=== PATIENT | female | born 1945 | race Caucasian/White ===

== ENCOUNTER 2023-11-30 12:25 | Day surgery (SDC) | payer OTHER, SELFPAY ==
[2023-11-30] VITALS (8 sets, daily range): BP systolic 93–157; BP diastolic 47–70; BMI 27.1
--- NOTE | 2023-11-30 09:00 | ITS.CL.CATH ---
Economics Instructor - Catheterization
Cardiac Catheterization
Procedure Report:
CARDIAC CATHETERIZATION REPORT
Date of Procedure: 11/30/2023
Referring: Renny Wu DO
Indication: Severe aortic stenosis
HEMODYNAMIC DATA
AO: 116/58
LV: Not done
LEFT VENTRICULOGRAPHY: Not performed as we chose not to cross the critically stenotic aortic valve
CORONARY ANGIOGRAPHY
Dominance: Right
Left Main: Normal
LAD: Moderate to severe proximal to mid LAD calcification. There is calcific 30% mid LAD stenosis and 40% distal LAD stenosis
Circumflex: Mild luminal irregularities
RCA: Dominant vessel with mild luminal irregularities in the RCA proper. The large PDA has 30% mid stenosis. There is a 60% stenosis in the distal AV groove extending into the origin of the large terminal right posterolateral branch
Closure Device: None-the procedure was performed via the right radial artery. The Amadou's test was normal prior to the procedure.
Radiation dose (mGy): 147
DAP (cm2.Gy): 11.9
Fluoroscopy time: 3.5 minutes
CONCLUSIONS:
1. Mild CAD as described
2. Critical aortic stenosis not invasively evaluated
RECOMMENDATIONS: Proceed with TAVR evaluation
Copy to: Renny Wu DO, Lance Gifford DO,
Pepito Angela MD, [facility], [facility]
[2023-11-30 13:31] LABS: Glucose - Point of Care 108 mg/dl (70-99)
[2023-11-30] MEDS: TYLENOL 650 MG PO (15:46)
--- NOTE | 2023-11-30 16:05 | CONSULT.STRU ---
Consultation
-
Date/Time Consultation Requested: 11/30/2023
Date/Time Consultation Performed: 11/30/2023
Requesting Provider: Pepito Angela MD
Performing Provider: FIDELINA Fermin
Reason for Consultation: Severe Aortic Stenosis/ TAVR evaluation
Patient History
Physicians
Family Physician: Balta
Outpatient Monument Mason: Renny Wu
Primary Monument Mason: Renny Wu
History of Present Illness
Ms. Rocha is a 78 year old female with history of type II DM , HTN , HLD , hypothyroidisim , osteoarthritis. She was recently treated PNA involving LLL� 09/2023 who presents for evaluation for aortic stenosis. Patient explains that she had been in
her normal state of health until shortly before September when she was diagnosed with influenza as well as pneumonia after she had been with her family to celebrate [facility]. She has since been feeling increased fatigue as well as some chest pressure that
does not radiate, DELATORRE and lightheadedness. Her echocardiogram was notable for critical aortic stenosis with a mean gradient of 80.5 mmHg peak gradient of 102.6 mmHg and aortic valve area of 0.5 cm sq. There is mild aortic regurgitation. EF is
55-60%. Other valves appear structurally normal. Cardiac cath today with mild CAD-calcific 30% mid LAD stenosis and 40% distal LAD stenosis, large PDA has 30% mid stenosis. There is a 60% stenosis in the distal AV groove extending into the origin
of the large terminal right posterolateral branch.
Reviewed the pathophysiology of aortic stenosis with the patient.. Explained the treatment options of SAVR and TAVR. Explained the TAVR evaluation process including follow up BMP, CT TAVR scan, CT surgery consult and Heart Team discussion. Provided
with script for BMP next week, script and appointment for CT TAVR, Consult appointment with Dr. Patel and a copy of the TAVR education booklet with contact information. Allowed for and answered questions.
Past Medical History
Past Medical History: CAD, DELATORRE, HTN, Hypercholesterolemia, Hypothyroidism, NIDDM and Psychiatric (anxiety/depression)
Past Surgical History
Past Surgical History: Other (D&C)
Dental History
Dentures
Family History
Mother: at Age (79yo, alzheimers)
Father: at Age (61yo, mesothelioma)
Social History
Alcohol: Occasional
Drug: None and Former User
Tobacco: Former Smoker (quit 50 years ago )
Personal:
Living: Alone
Allergies
Allergy/AdvReac Type Severity Reaction Status Date / Time
No Known Allergies Allergy Verified 11/30/23 13:32
Home Medications
�Medication �Instructions �Recorded �Confirmed �Type
atorvastatin 10 mg tablet 10 mg PO DAILY 11/30/23 11/30/23 History
escitalopram oxalate 10 mg tablet 10 mg PO DAILY 11/30/23 11/30/23 History
levothyroxine 75 mcg tablet 75 mcg PO DAILY 11/30/23 11/30/23 History
lisinopril 20 mg tablet 20 mg PO DAILY 11/30/23 11/30/23 History
meloxicam 15 mg tablet 15 mg PO DAILYPRN PRN pain 11/30/23 11/30/23 History
metformin 500 mg tablet 500 mg PO DAILY 11/30/23 11/30/23 History
STS%
STS %: 2.82%
Review of Systems
-
History Source: Patient
General: Reports Fatigue; Denies Fever, Weight Gain or Night Sweats
HEENT: Reports No Symptoms
Respiratory: Reports DELATORRE; Denies Cough or PND
Cardiac: Reports Chest Pain (chest pressure); Denies Palpitations or Edema
Abdomen/GI: Reports Diarrhea (occasional); Denies Abdominal Pain, Nausea or Vomiting
: Reports No Symptoms; Denies Dysuria, Frequency or Urgency
Musculoskeletal: Reports No Symptoms
Skin: Reports No Symptoms
Neurological: Reports Dizzy (lightheadedness); Denies CVA or TIA
Vascular: Reports No Symptoms
Physical Exam
Vital Signs
Temp 97.8 F 11/30/23 12:35
Temp route: Oral 11/30/23 12:35
Pulse 55 11/30/23 15:30
Resp Rate 13 11/30/23 15:30
Blood pressure 121/48 11/30/23 15:30
Blood pressure extremity used: Right upper arm 11/30/23 15:21
Position: Lying 11/30/23 15:21
MAP (cuff-Luciano Monitor) 70 11/30/23 15:30
SaO2 98 11/30/23 15:30
Oxygen Mode of Delivery Room air 11/30/23 15:21
Can the patient verbally communicate their pain? Yes 11/30/23 15:46
Pain scale ratin 11/30/23 15:46
Actual Weight 72.8 kg 11/30/23 12:35
Body Mass Index (BMI) 27.1 11/30/23 12:35
Labs
11/17/2023:
BUN/Creat: 18/1.17
GFR: 48
H/H: 11.5/33.4
Diagnostic Studies
Echocardiogram 11/25/2023:
CONCLUSIONS
Study quality suboptimal due to poor acoustic windows. There is normal
biventricular systolic function ejection fraction 55 to 60%. Regional wall
motion abnormalities cannot be adequately assessed.. There is grade 1
diastolic dysfunction. There is mild concentric left ventricular hypertrophy.
Left atrium is mildly dilated remainder of chambers of normal size. Aortic
valve is severely calcified. There is critical aortic stenosis with a mean
gradient of 80.5 mmHg peak gradient of 102.6 mmHg and aortic valve area of 0.5
cm sq. There is mild aortic regurgitation.
Results communicated to patient on date of study via phone conversation.
Indications:
Cardiac murmur, unspecified
Rhythm: Sinus
Portable Study:
Technical Quality: Technically difficult study
Contrast: None
BP: 120 / 70
PROCEDURE
A complete Transthoracic Echocardiogram was performed utilizing two-dimensional
evaluation with color flow and spectral Doppler analysis.
FINDINGS
Left Ventricle
Normal left ventricular size, and systolic function. There is mild concentric
LVH. Regional wall motion abnormalities cannot be adequately assessed. due to
poor endocardial visualization of all segments. The ejection fraction is
estimated at 55 to 60% Spectrum tissue Doppler suggestive of grade 1 diastolic
dysfunction.
Right Ventricle
Normal right ventricular size and function. TAPSE 2.59 cm
Left Atrium
Left atrium is mildly dilated
Right Atrium
Normal right atrium.
Mitral Valve
Structurally normal mitral valve without significant stenosis or regurgitation.
Aortic Valve
Aortic valve is severely calcified. There is critical aortic stenosis with a
mean gradient of 80.5 mmHg peak gradient of 102.6 mmHg and aortic valve area of
0.5 cm sq. There is mild aortic regurgitation.
Tricuspid Valve
Structurally normal tricuspid valve without significant stenosis or
regurgitation. Due to absence of tricuspid regurgitant jet unable to estimate
right ventricular systolic pressure.
Pulmonic Valve
Pulmonic valve not well visualized
Pericardium\\Pleura
Normal pericardium without effusion.
Aorta
Normal aortic root.
Other Finding
The IVC is of normal size and demonstrates normal respiratory variation.
Interatrial septum is intact with no evidence of shunting by color flow
Doppler.
MEASUREMENTS (Male / Female) Normal Values
2D ECHO
LV Diastolic Diameter PLAX 3.6 cm 4.2 - 5.9 / 3.9 - 5.3 cm
LV Systolic Diameter PLAX 2.6 cm
IVS Diastolic Thickness 1.2 cm 0.6 - 1.0 / 0.6 - 0.9 cm
LVPW Diastolic Thickness 1.1 cm 0.6 - 1.0 / 0.6 - 0.9 cm
LV Relative Wall Thickness 0.6
RV Internal Dim ED PLAX 2.8 cm
LVOT Diameter 2.0 cm
M-MODE
Aortic Root Diameter MM 2.7 cm
LA Systolic Diameter MM 4.3 cm
LA Ao Ratio MM 1.6
DOPPLER
AV Peak Velocity 506.5 cm/s
AV Peak Gradient 102.6 mmHg
AV Mean Gradient 80.5 mmHg
AV Velocity Time Integral 149.8 cm
LVOT Peak Velocity 81.5 cm/s
LVOT Peak Gradient 2.7 mmHg
LVOT Velocity Time Integral 23.5 cm
LVOT Stroke Volume 75.0 cm3
LVOT Stroke Volume Index 40.1 ml/m2 empty
LVOT Cardiac Index 2527.8 cm3/min
AV Area Cont Eq vti 0.5 cm2
AV Area Cont Eq pk 0.5 cm2
Mitral E Point Velocity 103.6 cm/s
Mitral A Point Velocity 110.8 cm/s
Mitral E to A Ratio 0.9
Cardiac Catheterization 11/30/2023:
HEMODYNAMIC DATA
AO: 116/58
LV: Not done
LEFT VENTRICULOGRAPHY: Not performed as we chose not to cross the critically stenotic aortic valve
CORONARY ANGIOGRAPHY
Dominance: Right
Left Main: Normal
LAD: Moderate to severe proximal to mid LAD calcification. There is calcific 30% mid LAD stenosis and 40% distal LAD stenosis
Circumflex: Mild luminal irregularities
RCA: Dominant vessel with mild luminal irregularities in the RCA proper. The large PDA has 30% mid stenosis. There is a 60% stenosis in the distal AV groove extending into the origin of the large terminal right posterolateral branch
Closure Device: None-the procedure was performed via the right radial artery. The Amadou's test was normal prior to the procedure.
Radiation dose (mGy): 147
DAP (cm2.Gy): 11.9
Fluoroscopy time: 3.5 minutes
CONCLUSIONS:
1. Mild CAD as described
2. Critical aortic stenosis not invasively evaluated
Exam
General: Well Developed, Well Nourished, No Apparent Distress and Comfortable
HEENT: Normocephalic, Moist Mucous Membranes and PERRLA
Neck: Trachea Midline
Respiratory: Clear; Negative Wheezes, Crackles or Rhonchi
Cardiac: S1/S2, Irregular Rhythm and Murmur (Grade III-IV/ systolic)
GI: Soft, Non Tender, Non Distended and Normal Bowel Sounds
Rectal: Deferred by Provider
Skin: Warm and Dry
Neuro: AO x 3, No Motor Deficits and Nonfocal/Grossly Intact
Extremities: Pulses (+2 DP pulses bilaterally); Negative Lower Level Edema
Lymph: No Lymphadenopathy
Psych: Calm
Assessment / Plan
-
Procedure Type:�Isolated AVR
PERIOPERATIVE OUTCOME ESTIMATE %
Operative Mortality 2.82%
Morbidity & Mortality 12%
Stroke 1.07%
Renal Failure 3.47%
Reoperation 2.81%
Prolonged Ventilation 8.45%
Deep Sternal Wound Infection 0.077%
Long Hospital Stay (>14 days) 8.28%
Short Hospital Stay (<6 days)* 28.7%
Severe Aortic stenosis:
��������������� Continue evaluation for TAVR
��������������� BMP 12/03/2023 ([facility])
��������������� CT TAVR scan 12/07/2023 at
��������������� CT surgery consult with Dr. Patel 12/07/2023
��������������� Heart team discussion at [facility]
Data Reviewed
-
EKG: Report Reviewed by me
Forensic Engineer: Report Reviewed by me and Discussed with Physician
Echo: Report Reviewed by me and Discussed with Physician
Labs: Labs Reviewed by me
Old Records: Reviewed (Cardiology office notes)
Total Time Spent with Patient (in minutes): 35
== END 2023-11-30 17:05 | disposition home or self-care (01) ==
LOC: CATH 12:25
PROVIDERS: ATTENDING PHYSICIAN Internal Medicine Cardiovascular Disease; FAMILY PHYSICIAN Family Medicine; OTHER PHYSICIAN Student in an Organized Health Care Education/Training Program
DX: I35.0 Nonrheumatic aortic (valve) stenosis (principal); R53.83 Other fatigue; R07.89 Other chest pain; R01.1 Cardiac murmur, unspecified; I25.10 Atherosclerotic heart disease of native coronary artery without angina pectoris; I10 Essential (primary) hypertension; E78.00 Pure hypercholesterolemia, unspecified; E03.9 Hypothyroidism, unspecified; E11.9 Type 2 diabetes mellitus without complications; Z87.891 Personal history of nicotine dependence; Z79.84 Long term (current) use of oral hypoglycemic drugs
CPT/HCPCS: 82962; 93005; 93454; C1894; Q9967

== ENCOUNTER → 2023-12-07 10:44 | Outpatient (REF) | payer OTHER, SELFPAY | LOC: RAD 10:44 | PROVIDERS: ATTENDING PHYSICIAN Nurse Practitioner Adult Health; FAMILY PHYSICIAN Family Medicine | DX: I35.0 Nonrheumatic aortic (valve) stenosis (principal) | CPT/HCPCS: 74174; 75572; Q9967 ==

== ENCOUNTER 2023-12-15 15:44 | Inpatient (IN) | payer OTHER, SELFPAY ==
[2023-12-15] VITALS (7 sets, daily range): BP systolic 103–154; BP diastolic 44–73; BMI 25.9; BMI 26.8; BMI 25.5
[2023-12-15 12:39] LABS: % Basophils 0.9 % (0-2); % Eosinophils 2.1 % (0-6); % Immature Granulocytes 0.2 % (0-0.5); % Lymphocytes 26.6 % (20.5-51.1); % Neutrophils 62.2 % (42.2-75.2); Absolute Basophils 0.1 10^3/uL (0-0.2); Absolute Eosinophils 0.1 10^3/uL (0-0.7); Absolute Lymphocytes 1.8 10^3/uL (1.2-3.4); Absolute Monocytes 0.5 10^3/uL (0.1-0.6); Absolute Neutrophils 4.1 10^3/uL (1.4-6.5); Hematocrit 33.6 % (37.0-47.0); Hemoglobin 11.2 g/dL (12.0-16.0); Mean Corp Hgb Conc. 33.3 g/dL (33.0-37.0); Mean Corpuscular Hgb 30.7 pg (27.0-31.0); Mean Corpuscular Volume 92.1 fL (81.0-99.0); Mean Platelet Volume 11.9 fL (7.4-10.4); Nucleated Red Blood Cells % 0 %; Platelet Count 375 10^3/uL (130-400); Red Blood Cell Count 3.65 10^6/uL (4.20-5.40); Red Cell Dist. Width 13.7 % (11.5-14.5); White Blood Cell Count 6.6 10^3/uL (4.8-10.8)
[2023-12-15 12:40] LABS: Urine Albumin Trace (Neg - Trace); Urine Bilirubin Negative (Negative); Urine Character Clear (Clear); Urine Color Yellow; Urine Glucose Negative (Negative); Urine Ketone Negative (Negative); Urine Leukocyte 1+ (Negative); Urine Nitrite Negative (Negative); Urine Occult Blood Negative (Negative); Urine Specific Gravity 1.015 (<1.030); Urine Urobilinogen Negative (Neg - 1+)
[2023-12-15 12:55] LABS: INR 1.01; PT 13.3 Sec (11.4-14.6)
[2023-12-15 12:56] LABS: APTT 29.2 Sec (23.4-35.0)
[2023-12-15 13:00] LABS: NT-proBNP 2810 pg/ml
[2023-12-15 13:06] LABS: ALT (SGPT) 12 U/L (0-35); AST (SGOT) 26 U/L (14-36); Albumin 4.6 g/dl (3.5-5.0); Alkaline Phosphatase 98 U/L (38-126); Blood Urea Nitrogen 23 mg/dl (7-17); Calcium 10.2 mg/dl (8.4-10.2); Carbon Dioxide 23 mmol/L (22-30); Chloride 105 mmol/L (98-107); Direct Bilirubin 0.2 mg/dl (0.0-0.4); Estimated Creatinine Clearance 34 ml/min; Glucose 96 mg/dl (70-99); Potassium 5.2 mmol/L (3.5-5.1); Sodium 138 mmol/L (135-145); Total Bilirubin 1.8 mg/dl (0.2-1.3); Total Protein 6.7 g/dl (6.3-8.2); eGFR 42.35
[2023-12-15 13:52] LABS: Glycohemoglobin (HgbA1c) 5.6 % (4.0-5.6)
[2023-12-15 14:23] LABS: Urine Amorphous Seen; Urine Hyaline Cast 0-2 /LPF (0-2)
[2023-12-15 14:25] LABS: Urine Red Blood Cell 0-2 /HPF (0-2)
--- NOTE | 2023-12-15 14:25 | ED.GENMED ---
History of Present Illness
General
Chief Complaint: Heart Rate Problem
Time Seen by Provider: 12/15/23 14:19
History of Present Illness
History of Present Illness:
HPI: The patient was sent here for evaluation by a physician (patient states it was an anesthesiologist) in preadmission testing. She was at preadmission testing today as part of workup for upcoming TAVR. She is getting a TAVR because she has
critical aortic stenosis mean gradients of 80 and peak over 100. Over the last few days she has been having some palpitations. EKG at preadmission testing showed some PACs and the staff recommended she come into the ER for further evaluation. She
is also had some chest pressure sensation.
EXAM:
GENERAL: Well appearing in no distress
HEENT: Moist oral mucosa
CARDIOVASCULAR: 4 out of 6 systolic murmur in the right upper sternal border, normal heart rate, regular rhythm with some degree of irregularity/ectopy, No chest wall tenderness
PULMONARY: No respiratory distress, breath sounds are clear and equal
ABDOMEN: Soft with no peritoneal signs, no tenderness
NEUROLOGIC: Excellent strength all extremities, no coordination deficits
PSYCHIATRIC: Appropriate mental status, normal insight and judgement
EXTREMITIES: Nontender, no edema, moves all extremities equally
SKIN: No rash, no lesions
TIME OF INITIAL ENCOUNTER: 2:30 PM
NUMBER AND COMPLEXITY OF PROBLEMS ADDRESSED AT THE ENCOUNTER
� Chronic conditions affecting care: Aortic stenosis, high blood pressure, diabetes, hypothyroidism
� Acute Exacerbation and/or Progression of Chronic Illness: This is an acute problem
� Differential Diagnosis includes: Atrial ectopy, ventricular ectopy, ACS unlikely however the patient, atrial fibrillation, progression of aortic stenosis
AMOUNT AND/OR COMPLEXITY OF DATA TO BE REVIEWED AND ANALYZED
� I performed an independent evaluation of and my interpretation is:
EKG: Sinus 60, PACs, septal Q waves
CT:
X-rays:
Laboratory Studies: Troponin less than 0.012, potassium 5.2, BNP 2810, urinalysis does not show any clear sign of urinary tract infection
Other:
� Review of other/old records: I reviewed echo from 11/25/2023�critical
� Clinical information was obtained by an independent historian: I spoke to family at bedside and I also spoke to her steam flattener
� Prescriptions/Medications Considered but not given:
� Further testing considered but not performed:
RISK OF COMPLICATIONS AND/OR MORBIDITY OR MORTALITY OF PATIENT MANAGEMENT
� Social determinants of health affecting care: Lives at home
� Discussion with other providers: I spoke to the patient's primary steam flattener, Dr. Renny Wu who states the patient has nonobstructive CAD and has critical aortic stenosis. I spoke to [facility] cardiology and they will
be admitting the patient to the hospital.
� Escalation of care including admission/observation vs risk of discharge considered: I discussed with cardiology. Ultimately the patient will be admitted by [facility] cardiology for urgent/emergent TAVR tomorrow.
Phy Exam
Physical Exam
Physical Exam:
See HPI
Course
Orders/Labs/Results
Orders:
Orders
12/15/23 11:40
Electrocardiogram (*1) Routine
Reason for Study: PreOp
Comment: [facility] 12/23/23
CR Chest - 2 Views Routine
Comment: [facility] 12/23/23
Reason For Exam: PREOP
12/15/23 12:16
Type+Screen Routine
BBK Wristband Number:
Complete Blood Count/With Diff Routine
Comprehensive Metabolic Panel Routine
Comment: [facility] 12/23/23
Direct Bilirubin Routine
Glycohemoglobin (HgbA1c) Routine
NT-proBNP Routine
Comment: [facility] 12/23/23
PTT Routine
Comment: [facility] 12/23/23
Prothrombin Time Routine
Comment: [facility] 12/23/23
Urinalysis Reflex To Culture Routine
Date Specimen was Collected: 12/15/23
Time Specimen was Collected: 11:41
Comment: [facility] 12/23/23
Urine Microscopic Reflex Cult Routine
MRSA Screen Routine
MARTY Source: N
Specimen Description:
Comment: [facility] 12/23/23
Urine Culture Routine
MARTY Source: U
Specimen Description:
Date Specimen was Collected: 12/15/23
Time Specimen was Collected: 11:41
12/15/23 13:11
Electrocardiogram (*1) Routine
Reason for Study: PreOp
Comment: [facility] 12/23/23
12/15/23 13:48
Electrocardiogram (*1) Urgent
Reason for Study: Palpitations
12/15/23 13:49
EKG- Treatment ONCE
12/15/23 13:56
Troponin I Urgent
12/15/23 14:20
Add On- LAB Urgent
Tests Added?: mg, TSH refl fT4 (had PAT labs)
12/15/23 15:17
* Blood Bank Products Routine
Blood Bank Products: *Packed RBC Leuko(PRBC's)
Blood Bank Products: *Packed RBC Leuko(PRBC's)
Quantity: 1
Transfuse Today: Hold for OR
Is product needed for scheduled surgery?: Yes
Expected Surgery Date: TOMORROW
Reason: Other
Other reason: cardiothoracic surgery
Patient will require pre-treatment for transfusion:: No
VTE Contraindication Routine
VTE Mechanical Device Contraindication: Surgical Contraindication
Pharmocologic Contraindication: Medical Contraindication
OR/Surgery Prep As Directed
Type of Prep: shower or bathe patient with 4% CHG night before surgery.
Comment: DOS: cleanse pt with 2% CHG wipes. Complete clip/prep for scheduled surgery
PRN Pain Medication Management As Directed
May give lesser potent ordered pain med per pt: Yes
preference::
Protocol:: Medication orders for pain may be administered in a
manner that supports deferring to patient preference
when the pt is:
- Requesting an ordered lesser potent pain medication.
Least to most potent pain medications are defined
as: acetaminophen < NSAID < tramadol < opioids
(morphine, oxycodone, hydromorphone).
- Requesting a lesser dose of the same medication IF
ORDERED.
- Requesting a less intrusive route of administration
if both routes are prescribed by the provider (PO <
IV).
12/15/23 15:22
Magnesium Routine
Comment: CANT BE ADDED
TSH Reflex To Free T4 Routine
Comment: CANT BE ADDED
12/15/23 15:26
Admit/Transfer Patient As Directed
Co-Sign Provider:
Level of Care: Inpatient admission
Assign to:: IVU
Physician / Group: Dr. Benedict
Diagnosis: critical aortic stenosis
Reason for Hospitalization: critical aortic stenosis
Expected length of stay greater than two midnights?: Yes
ELOS- Estimated Length of Stay in days: 3
I certify the patient meets the requirements for IP care: Yes
12/16/23 06:00
Admit Patient As Directed
Co-Sign Provider:
Level of Care: Inpatient admission
Assign to:: IVU
Physician / Group: juve vincent
Diagnosis: aortic stenosis
Reason for Hospitalization: TF TAVR
Expected length of stay greater than two midnights?: Yes
ELOS- Estimated Length of Stay in days: 2
I certify the patient meets the requirements for IP care: Yes
Echo Follow up Study W Dop Routine
Reason for Study: TAVR
Comment: done intraoperative
NPO
Allow oral meds: Yes
Allow clear liquids: No
NPO for procedure after (time): MIDNIGHT
CeFAZolin 2 GRAM [Ancef] 2 grams in 10 ml IV CVOR@0600,0700
Magnesium Oxide 500 mg PO ONCE ONE
Metoprolol [Lopressor] 25 mg PO ONCE ONE
Pantoprazole [Protonix] 40 mg PO ONCE ONE
Activity As Directed
Activity Level: As Tolerated
Blood Pressure Bilateral Upper Extremities IN AM
Instructions:: If not already done, obtain and record bilateral upper extremity BP
Notify physician/PA/WORK ORDER DETAILER:: notify cardiac surgery PA, WORK ORDER DETAILER, or MD of a 20 mmHg or greater difference
Blood Pressure LEFT Upper Extremity ONCE
Blood Pressure RIGHT Upper Extremity ONCE
Notify MD As Directed
Notify physician if: Contact physician if patient has received any of the following agents within the previous
5 days:
Warfarin (Coumadin) Clopidogrel (Plavix)
Dabigatran (Pradaxa) Ticagrelor (Brillinta)
Rivaroxiban (Xarelto) Prasugrel (Effient)
Apixaban (Eliquis) Cilostazol (Pletal)
Enoxaparin (Lovenox) Pentoxifylline (Trental)
Edoxaban (Savaysa) Dipyridamole/Aspirin (Aggrenox)
Notify MD As Directed
Notify physician if: patient received or is scheduled/ordered to receive within 24 hours prior to surgery any:
- angiotension converting enzyme (MAGDALENA) inhibitors
- angiotension receptor blockers (ARB)
including combination products containing one of these agents.
Patient Education As Directed
Type: [facility]
Comment: pre-operative teaching. Give patient/family [facility] education material
Patient scheduled for CT Surgery As Directed
Type of surgery: TAVR
Date of scheduled surgery: 12/16/23
Discontinue Heparin drip if ordered: building tech to OR
Weight As Directed
Frequency: Once
Comment: record patient's height and weight
Abnormal Lab Results
12/15/23
12:16
RBC 3.65 L 10^6/uL
(4.20-5.40)
Hgb 11.2 L g/dL
(12.0-16.0)
Hct 33.6 L %
(37.0-47.0)
MPV 11.9 H fL
(7.4-10.4)
Potassium 5.2 H mmol/L
(3.5-5.1)
BUN 23 H mg/dl
(7-17)
Creatinine 1.3 H mg/dL
(0.6-1.0)
Total Bilirubin 1.8 H mg/dl
(0.2-1.3)
Leukocyte Esterase Rfl 1+ A
(Negative)
12/15/23 12:16
12/15/23 12:16
Vital Signs
Initial and Last Documented VS:
Initial Vital Signs
Temp Pulse Resp BP Pulse Ox
98.3 F 48 16 154/47 100
12/15/23 13:43 12/15/23 13:43 12/15/23 13:43 12/15/23 13:43 12/15/23 13:43
Last Documented Vital Signs
Temp Pulse Resp BP Pulse Ox
98.3 F 56 12 154/47 100
12/15/23 13:43 12/15/23 15:32 12/15/23 15:32 12/15/23 13:43 12/15/23 13:43
*Critical Care Note
Total Time (30-74mins, 75-104mins- exclusive of procedures): Not Applicable
ED Attending Note
-
Portions of this chart may have been created with voice recognition software.� Occasional wrong word or��sound alike� substitutions may have occurred due to the inherent limitations of voice recognition software.
Discharge Plan
Departure
Patient Disposition: Admit
Date of Disposition: 12/15/23
Time of Disposition: 14:47
Presentation/result/management discussed w/ accepting MD/DO: connie
Discharge Problem:
Aortic valve stenosis, critical
Interventions
Interventions:
*General Assessment Last Done: 12/15/23 13:43
*ED COVID-19 Vaccine History Last Done: 12/15/23 13:43
[2023-12-15 14:30] LABS: Troponin I < 0.012 ng/ml
--- NOTE | 2023-12-15 14:34 | CM ---
Met with Mrs. Rocha in [facility]'s. She states prior to admission she resides alone in a one story home with five steps to enter. She states prior to admission she was independent with ambulation and adls. She states she does not have any DME in the
home. She states she has a prescription plan and uses [facility] She states she is planning on staying a few days with her son in [place] when she is discharged from the hospital. He resides in a two story home but she stays on the first
floor. His spouse in a nurse. The Cardiothoracic Transitional Care Nurse will do a telephone visit. The discharge plan is to go to her sons and daughter in-law home in [place] and a telephone visit by the Cardiothoracic Transitional Care Nurse
when medically stable.
We reviewed pre-op and post-op routines. We reviewed the shower instructions. She has the soap, written instructions and the TAVR Educational Booklet. We also reviewed restrictions including driving and lifting restrictions. We reviewed a
telephone visit from the Cardiothoracic Transitional Care Nurse. She is agreeable to a telephone visit. The plan is for TAVR on 12/16/23.
--- NOTE | 2023-12-15 14:49 | HPS.HSE ---
Addendum entered and electronically signed by Killian Benedict DO 12/15/23 18:22:
Attestation: I have seen and examined the patient. I can confirm Ms. Luis findings and I agree with her assessment and plan as documented.
78-year-old female with critical aortic valve stenosis, hypertension, hyperlipidemia and nonobstructive coronary artery disease on previous cardiac catheterization presenting with palpitations on preadmission testing.
Due to the patient's change in symptoms, the patient was referred to [facility] emergency room from her preop testing.
She reports increasing palpitations over the course of the past week. She feels as though her heart is 'jumping'. She does admit to a low level pressure that is inconsistent. She denies any shortness of breath, diaphoresis, syncope or presyncope.
Given the change in the patient's symptoms, the decision was made to admit the patient and proceed with TAVR on an expedited basis.
I reviewed the patient's exam and laboratory findings.
Her EKG shows sinus rhythm with some sinus arrhythmia and PACs. 1 EKG does demonstrate an acceleration of her heart rate, raising the possibility of tachybradycardia syndrome, though this is certainly not definitive.
Cardiac catheterization shows nonobstructive coronary artery disease. There may be some significant disease in the distal RPDA, but this is not something that we would intervene upon due to the vessel size.
The patient will be n.p.o. after midnight in anticipation of transcatheter aortic valve replacement tomorrow.
Original Note:
Family Physician
-
Family Physician: Lance Gifford
Chief Complaint
-
palpitations
History of Present Illness
78 y/o female (patient of Dr. Wu) with history of non-obstructive CAD, critical , DM2, hypertension, dyslipidemia, hypothyroidism, and osteoarthritis who was planning for TAVR next week, but today at preadmission testing reported palpitations
and was sent to the ER, where she is seen to have SR with PAC's.
Medical History
Past Medical History
Past Medical History: Reports CAD, HTN, Hypercholesterolemia, Hypothyroidism, NIDDM and Valvular Disease
Past Surgical History: Reports Tonsilectomy
Social History
Tobacco: Former Smoker (quit 50 years ago)
Family History
Family History: Hypertension (dad)
Allergies / Home Medications
Allergies reflects when Allergies were last updated in [employer].
Home Medications with original date entered in [employer]
Allergy/Medication List:
Allergies: no known allergies
Medications:
aspirin 81 mg daily PO
atorvastatin 10 mg PO daily
escitalopram 10 mg PO daily
Boniva 150 mg PO monthly
iron EOD OTC
levothyroxine 75 mcg PO daily
metformin 1000 mg PO BID
meloxicam 15 mg PO PRN
Review of Systems
-
History Source: Patient
A 12 point ROS was completed and negative except as noted: Yes
Cardiac: Reports Palpitations
Physical Exam
Vital Signs
Vital Signs
Temp Pulse Resp BP Pulse Ox
98.3 F 48 16 154/47 100
12/15/23 13:43 12/15/23 13:43 12/15/23 13:43 12/15/23 13:43 12/15/23 13:43
Physical Exam
General: Well Developed, Well Nourished and No Apparent Distress
HEENT: NormoCephalic and Anicteric
Respiratory: Clear and Non Labored Respirations
Cardiac: Irregular Rhythm and Murmur (IV/ systolic murmur)
Skin: Warm and Dry
Neuro: AO x 3
Psych: Calm
Laboratory Results
-
Laboratory Results
Troponin I < 0.012 ng/ml 12/15/23 13:56
Data Reviewed
-
Medical Tests (Nuc Med, Echo, EKG etc): Image Personally Visualized and interpreted (EKG SR with PAC's) and Other (cath and echo as noted above)
Lab Data: Labs Reviewed by me
Impression/Plan
-
IMPRESSION/PLAN:
Critical :
-severe as noted and reported palpitations today at pre-admission testing
-11/25/23 echo: EF 55 to 60%. Grade 1 DD. Mild concentric left ventricular hypertrophy. Left atrium is mildly dilated. Aortic valve is severely calcified. There is critical aortic stenosis with a mean gradient of 80.5 mmHg peak gradient of 102.6
mmHg and aortic valve area of 0.5 cm sq. Mild aortic regurgitation.
-plan was for TAVR next week, but now it will be planned for tomorrow. NPO after MN.
Palpitations:
-SR with PAC's on monitor
-continue to follow telemetry
-TSH, mag pending
-mild hyperkalemia is noted- will hold ACEI and recheck in AM
CAD:
-Cardiac cath 11/30/23: LAD: Moderate to severe proximal to mid LAD calcification. There is calcific 30% mid LAD stenosis and 40% distal LAD stenosis RCA: Dominant vessel with mild luminal irregularities in the RCA proper. The large PDA has 30% mid
stenosis. There is a 60% stenosis in the distal AV groove extending into the origin of the large terminal right posterolateral branch.
-no CP or SOB
-continue ASA, statin
HTN:
-on ACEI as OP- hold and monitor
Hypothyroidism:
-check TSH and continue meds
DM II:
-hold metformin for procedure
-SSI insulin
--- NOTE | 2023-12-15 15:55 | W.PN.UPDATE ---
Update Note
Progress Note Update
Patient admitted after reporting palpitations during pre-admission testing. Her TAVR procedure was moved to tomorrow. Pre-op orders placed. Please refer to outpatient H&P for full consult.
[2023-12-15 15:59] LABS: Magnesium 1.3 mg/dl (1.6-2.3)
[2023-12-15 16:29] LABS: TSH Reflex To Free T4 1.49 uIU/ml (0.47-4.68)
[2023-12-15 18:52] LABS: Glucose - Point of Care 90 mg/dl (70-99)
--- NOTE | 2023-12-15 19:18 | PTCARENOTE ---
Pt received from ED, she denies any discomfort. Telemetry shows sinus rhythm. Plan for TAVR prep tonight.
[2023-12-15] MEDS: NOVOLOG FLEXPEN-LOW RESISTANCE SC (19:22)
[2023-12-15] MEDS: TYLENOL 500 MG PO (21:49)
[2023-12-15 21:54] LABS: Glucose - Point of Care 125 mg/dl (70-99)
[2023-12-16] VITALS (20 sets, daily range): BP systolic 96–154; BP diastolic 41–76; BMI 25.3
--- NOTE | 2023-12-16 00:41 | PTCARENOTE ---
Pt received start of shift, HR appears to be SR/SB w/ frequent PACs. First prep completed: pt clipped + showered w/ CHG. New gown and linens. Bed wiped down. Will repeat in AM. Pt denies any CP, worsening SOB, or lightheadedness/dizziness at this
time. Informed to notify RN if any changes, call menjivar within reach.
--- NOTE | 2023-12-16 02:41 | W.PN.UPDATE ---
Update Note
Progress Note Update
- intermittent episodes of sinus bradycardia low 40s overnight - not on AVN blocking meds
[2023-12-16 05:38] LABS: Hematocrit 32.3 % (37.0-47.0); Mean Corp Hgb Conc. 34.1 g/dL (33.0-37.0); Mean Corpuscular Hgb 31.3 pg (27.0-31.0); Mean Corpuscular Volume 91.8 fL (81.0-99.0); Mean Platelet Volume 11.9 fL (7.4-10.4); Platelet Count 350 10^3/uL (130-400); Red Blood Cell Count 3.52 10^6/uL (4.20-5.40); Red Cell Dist. Width 13.6 % (11.5-14.5); White Blood Cell Count 7.5 10^3/uL (4.8-10.8)
[2023-12-16] MEDS: SYNTHROID 75 MCG PO (05:57)
[2023-12-16] MEDS: TYLENOL 500 MG PO (05:57)
[2023-12-16 06:01] LABS: Blood Urea Nitrogen 23 mg/dl (7-17); Calcium 10.1 mg/dl (8.4-10.2); Carbon Dioxide 27 mmol/L (22-30); Chloride 107 mmol/L (98-107); Estimated Creatinine Clearance 37 ml/min; Glucose 86 mg/dl (70-99); Magnesium 1.4 mg/dl (1.6-2.3); Potassium 5.1 mmol/L (3.5-5.1); Sodium 140 mmol/L (135-145); eGFR 46.62
[2023-12-16] MEDS: ASPIR LOW (ENTERIC COATED) 81 MG PO (06:17)
--- NOTE | 2023-12-16 06:34 | W.CVOR.SURPR ---
CVOR Surgeon Immed Pre Op
-
I have examined this patient prior to performance of the scheduled procedure.
The patient's condition is unchanged from the time of the dictated/written History and
Physical and the patient is able to undergo the scheduled procedure.
TF TAVR
--- NOTE | 2023-12-16 06:35 | W.PN.UPDATE ---
Update Note
Progress Note Update
I met with Mrs. Tobin in the ED at the bedside, she was here for preop testing and was found to have an abnormal heart rhythm. Additionally she tells me she has been feel more fatigue and 'just not right.' She was seen by my partner in the office
for critical . Multidisciplinary discussion consensus was to admit Mrs. Harris overnight for observation and to expedite her TAVR procedure. She understands that she has a high risk for PPM with her current rhythm.
--- NOTE | 2023-12-16 06:37 | PTCARENOTE ---
second round of prep completed and pt wiped down with CHG wipes.
[2023-12-16 07:40] LABS: Glucose - Point of Care 100 mg/dl (70-99)
[2023-12-16] MEDS: NOVOLOG FLEXPEN-LOW RESISTANCE SC ×3 (08:13→17:07)
--- NOTE | 2023-12-16 08:41 | W.PN.CD ---
Today's Communication / Plan
-
TAVR today.
Transfer to CTS after TAVR.
Impression / Plan
-
Impression/Plan: 78 y/o female with HTN, HLD, NIDDM, non-obstructive CAD and critical admitted with worsening symptoms (primarily palpitations with some chest pressure) for expedited TAVR.
#Severe/Critical
-Chronic, progressive.
-Mean gradient > 80 mmHg.
-Discussed with multidisciplinary team.
-Plan for TF TAVR today.
-Anticipate routine post procedure management, including aspirin for antithrombotic therapy.
-Monitor telemetry.
#Palpitations/Bradycardia
-Progressive.
-Discussed EKG's with EP. They believe there is latent sinus node dysfunction.
-We will avoid rate control agents.
-Monitor on telemetry. The patient is at higher risk for PPM and may require outpatient monitor.
#HTN
-Chronic, stable.
-Continue lisinopril.
#HLD
-Chronic, stable.
-Continue atorvastatin 10 mg daily.
#NIDDM
-Chronic, stable.
-Metformin on hold due to procedure.
#PPx
-Enoxaparin for DVT/VTE.
-No role for PPI.
#Dispo
-Full code.
-TAVR today.
-Transfer to CTS service after TAVR.
Subjective/Interval History:
Creatinine elevated but stable.
Magnesium low.
DATA:
TTE, 11/25/2023:
CONCLUSIONS
Study quality suboptimal due to poor acoustic windows. There is normal
biventricular systolic function ejection fraction 55 to 60%. Regional wall
motion abnormalities cannot be adequately assessed.. There is grade 1
diastolic dysfunction. There is mild concentric left ventricular hypertrophy.
Left atrium is mildly dilated remainder of chambers of normal size. Aortic
valve is severely calcified. There is critical aortic stenosis with a mean
gradient of 80.5 mmHg peak gradient of 102.6 mmHg and aortic valve area of 0.5
cm sq. There is mild aortic regurgitation.
Results communicated to patient on date of study via phone conversation.
Cardiac Catheterization, 11/30/2023:
CORONARY ANGIOGRAPHY
Dominance: Right
Left Main: Normal
LAD: Moderate to severe proximal to mid LAD calcification. There is calcific 30% mid LAD stenosis and 40% distal LAD stenosis
Circumflex: Mild luminal irregularities
RCA: Dominant vessel with mild luminal irregularities in the RCA proper. The large PDA has 30% mid stenosis. There is a 60% stenosis in the distal AV groove extending into the origin of the large terminal right posterolateral branch
Physical Exam
Vital Signs/Labs
Vital Signs
Temp Pulse Resp BP Pulse Ox
36.6 C 50 20 146/42 98
12/16/23 07:36 12/16/23 06:30 12/16/23 07:36 12/16/23 05:46 12/15/23 15:42
12/14/23 12/15/23 12/16/23
11:59 11:59 11:59
Actual Weight 71.1 kg
12/16/23 05:11
12/16/23 05:11
PT 13.3 Sec (11.4-14.6) 12/15/23 12:16
INR 1.01 12/15/23 12:16
APTT 29.2 Sec (23.4-35.0) 12/15/23 12:16
Magnesium 1.4 mg/dl (1.6-2.3) L 12/16/23 05:11
12/15/23
12:16
Thl-V-Dhoosqppuac Pept 2810
LAB Results
12/15/23
13:56
Troponin I < 0.012
Physical Exam
Constitutional: No acute distress and Comfortable
EENT: Anicteric and Moist mucous membranes
Cardiovascular: Rhythm & rate is regular, Pedal edema is absent, JVD pressure is normal and Systolic murmur present
Respiratory: Respiratory effort normal, Lungs clear to auscul., Wheeze Absent, Crackles Absent and Rhonchi Absent
GI: Soft, Distention absent, Flat, Non tender and Normal bowel sounds
Neuro/Psych: AO x 3
Data Reviewed
-
Date of Service: December 16, 2023
Medical Decision Making: Reviewed Test Results, Independent Historian Assessment, Test Interpretation and Review of Case with other Provider
EKG: Tracing Personally Visualized and interpreted and Report Reviewed by me
Echo: Tracing Personally Visualized and interpreted and Report Reviewed by me
X-Ray/CT/US/MRI/NUC/PET: Image Personally Visualized and interpreted and Report Reviewed by me
Medical Tests (PFT, Pathology etc): Image Personally Visualized and interpreted and Report Reviewed by me
Labs: Labs Reviewed by me
Old Records: Reviewed
[2023-12-16] MEDS: LEXAPRO PO (09:05)
[2023-12-16] MEDS: LIPITOR PO (09:05)
[2023-12-16] MEDS: FEOSOL PO (09:05)
--- NOTE | 2023-12-16 09:27 | PTCARENOTE ---
Pt left for TAVR procedure. Report given to ATYLOR Velázquez. Dentures and jewelry removed. Pt NPO this AM. Family at bedside and updated.
[2023-12-16] MEDS: ANCEF 10 IV ×2 (09:52)
[2023-12-16 10:48] LABS: ACT-LR - POC 244 Seconds (116-155)
[2023-12-16 10:57] LABS: ACT-LR - POC 271 Seconds (116-155)
--- NOTE | 2023-12-16 11:16 | CM ---
Chart reviewed. Patient is in the OR. Patient is independent of ADLS, lives alone in a 1 [address], 5 [address], 0 DME. Patient is going home with her son in [place]. Patients son lives in a 2 [address], 1st floor set up. Patient will received a follow up phone
call from the CT Transitional RN. NIRAV to follow
--- NOTE | 2023-12-16 11:19 | W.PN.CT.SURG ---
CT Surgery Operative Note
-
OPERATIVE REPORT
Preoperative Diagnosis: Severe aortic valve stenosis, symptomatic
Postoperative Diagnosis: Same
Procedure(s) Performed: Right trans femoral TAVR with a 26 mm, nominal volume, White TAVR valve with pre-TAVR balloon valvuloplasty of the aortic valve
Date of Procedure: 12/16/2023
Comorbidities:
1. Severe aortic stenosis, symptomatic
2. New onset atrial arrhythmias
3. Hypertension
4. Hyperlipidemia
5. Type 2 diabetes
6. Migraines
7. Depression/anxiety
8. Fibromyalgia
9. Osteopenia
10. IBS
Cardiac Surgeon: José Manuel Peace MD, MS
Refrigerating Technician: Killian Benedict MD
Anesthesia: Conscious Sedation and Local Analgesia
EBL: 100cc
Products: none
Implant: 26 mm Whtie BARBARA ultra TAVR valve, SN: [id number]
Indication(s) for Procedures: 78-year-old female with symptomatic severe aortic stenosis. CT-TAVR protocol revealed acceptable anatomy for TAVR access and implantation. She was admitted from preop examination as she was developing more chest
discomfort as well as fatigue and had no arrhythmia.
Start time: 1022hrs
Deployment time: 1052hrs
End time: 1105hrs
Radiation Dose (mGy): 171.92
DAP (cm2.Gy): 25.9100
Fluoroscopy time (minutes): 8.5
Contrast volume (ml): 70
TAVR gradient (mmHg): 5-7mmHg
Protamine Dose: 20mg
Final Valve Positionin/20
Findings: Preoperative LVEF was 60% and was 60% following TAVR without inotropic support, low-dose levo. Due to her critical levels of aortic valve stenosis gradients, a preoperative BAV was performed using a 20 mm true size balloon. This was
performed twice as during the first balloon valvuloplasty the balloon slipped towards the aorta. Function was overall normal without regional wall motion abnormalities or dyskinesia. The aortic valve was well seated without detectable PVL and mean
gradient across the new valve was 5-7 mmHg. She was in sinus tachycardia after induction but prior had sinus jessica with PACs, following deployment, she maintained sinus tachycardia and did not require pacing while on the lab associate table. There was
successful placement of 26mm, nominal volume, TAVR valve without acute complications. LVEDP was 20mmHg.
Access:
1. Device -right common femoral artery, perclose x 2
2. Pigtail -left common femoral + 6Fr angioseal
3. Transvenous Pacer -left common femoral vein
Description of Procedure: The patient was taken to the lab associate. Their identity and procedure to be performed were verified and they were positioned supine on the lab associate table. Induction via conscious sedation. The patient was then prepped and
draped from chin to thigh in a sterile fashion. A preoperative time-out was performed with all members of the team present. Arterial and venous access was performed using fluoroscopy and ultrasound guidance with micropuncture and Seldinger
technique. Two perclose devices were used on the device side followed by access to the aorta with a stiff wire to facilitate E-sheath placement. Heparin was given. A stiff straight wire and AL-1 catheter was used to cross the aortic valve followed
by measurement of LVEDP here. The stiff wire was exchanged for an extra stiff coiled tip wire. The valve was prepped and mounted on to the device carrier. An ACT of >250 was achieved after an additional 3000 units of heparin was given. We verified x
3 that the valve was mounted in the correct orientation with the skirt of the valve directed toward the tip of the device carrier before attempting a balloon valvuloplasty. A 20 mm true size balloon was then advanced over and across the aortic
valve. 2 balloon valvuloplasty attempts were performed as the first 1 had slipped towards the aorta during inflation. The balloon was then removed from the stiff wire and we advanced the device into the sheath and up the descending thoracic aorta
where the valve was them mounted onto the balloon under fluoroscopy. The device was flexed and advanced over the arch into the root and positioned across the aortic valve. Contrast fluoroscopy was used to visualize the prosthesis across the valve
and to guide positioning. A pigtail catheter in the RCC as used as a guide. We aimed to have the bottom of the device marker at the annular hinge point. The device sheath was pulled back. We performed a quick pre-deployment time out. The pacer was
turned on and had capture. Blood pressure fell accordingly, angiography was done to verify the intended final placement and the valve was deployed with 5 seconds of rapid pacing to nominal volume. The balloon was deflated and the pacer was turned
off. We had recovery of vitals. The device carrier was unflexed and positioned back in the descending thoracic aorta. A transthoracic echocardiogram was performed. The device was removed from the E-Sheath maintaining wire access followed by removal
of the E-sheath as we cinched down the perclose devices. There was acceptable hemostasis. The pigtail was withdrawn into the descending/abdominal and completion aortogram with runoff run-off angiography was performed. There was no stenosis or
dissection of bilateral iliofemoral systems. There was acceptable hemostasis of bilateral groins and manual pressure was held following wire removal. Low dose protamine was administered after checking another ACT.
All instrument, sponge, and needle counts were confirmed to be correct x 2 at the end of the operation. The patient was transferred to the cardiac intensive care unit in stable condition.
I, Dr. José Manuel Peace, was present, scrubbed for, and performed all critical elements of this procedure.
José Manuel Peace MD
Cardiothoracic Surgeon
[facility]
This operative dictation was created using the [employer] dictation system. Please excuse any grammatical, typographical, or 'sound alike' errors
--- NOTE | 2023-12-16 11:37 | W.PN.UPDATE ---
Update Note
Progress Note Update
Reviewed Ms. Rocha with the heart team in the preTAVR SDM meeting and confirmed a 26 mm S3. Patient will resume 81 mg aspirin PO daily post TAVR. LVEDP 20mmHg. #26mm S3 (serial#[id number]) successfully implanted via right transfemoral access. Post
implant MG 7mmHg.
--- NOTE | 2023-12-16 11:39 | ITS.CL.TAVR ---
Field Project Manager - TAVR Report
TAVR PRocedure
Procedure Report:
TRANSCATHETER AORTIC VALVE REPLACEMENT REPORT
Date: 12/16/2023
Referring physician: Renny Wu D.O.
Preop diagnosis: Severe aortic valve stenosis.
Postop diagnosis: Severe aortic valve stenosis.
Procedure: Aortic balloon valvuloplasty using 8 #20 true balloon. Transcatheter aortic valve replacement (TAVR) using a #26 White ELLE S3 Ultra.
Operators: Killian Benedict DO, José Manuel Peace M.D.
Findings: Severely calcified and stenotic aortic valve.
Anesthesia: Conscious sedation was provided by the anesthesia staff.
Estimated blood loss: Negligible.
Complications: None.
Condition: Stable
Procedure:
The patient was brought to the cardiac microbiological laboratory technician after consent and was prepped and draped in standard sterile fashion. Conscious sedation was provided by the anesthesia staff. After a 'Time Out,' bilateral common femoral arteries and the left
common vein were access using a modified Seldinger technique with a micropuncture kit under ultrasound guidance. A 6 Tunisian sheath was placed in the left femoral vein. Angiography performed through the micropuncture sheath confirmed satisfactory
arterial placement in the left common femoral artery. The micropuncture sheath was replaced with a 6Fr sheath in the left BOMB SQUAD OFFICER. Angiography through the micropuncture kit confirmed satisfactory arterial placement in the right common femoral artery.
The right BOMB SQUAD OFFICER was dilated with an 8FR dilator and preclosed with two Perc-Close devices. An 8Fr sheath was placed in the RCFA. A temporary pacing wire was advanced through the left femoral vein and into the right ventricle. The pacemaker
demonstrated good capture and was set to back up. A 5Fr pigtail catheter was advanced through the left femoral sheath and seated in the right coronary cusp. Angiography confirmed co-planar angles.
An AL-1 catheter was advanced through the 8Fr sheath, the J wire was exchanged for an Amplatz Superstiff wire and the catheter and the 8 Fr sheath was removed. The 14 Fr White E-sheath was inserted over the wire and into the descending aorta.
Heparin 9000 units was given. The ELLE S3 was prepared on the back table. Orientation was confirmed by both physicians. The AL-1 catheter was re-advanced through the E-sheath to the level of the ascending aorta. The Superstiff wire was removed
and a soft tip straight wire was advanced through the AL-1. The straight tip wire was used to cross the aortic valve and the catheter was advanced into the left ventricle. The straight wire was removed and an Amplatz Extrastiff wire with curved
proximal end was advanced through the catheter and into the left ventricle. The wire was seated in the apex and the catheter was removed. ACT was checked and confirmed to be > 250 seconds.
A #20 True balloon was advanced over the Extra-stiff wire and into the aortic annulus. Valvuloplasty was performed under rapid pacing with good balloon expansion. The valvuloplasty balloon was removed.
The valve was advanced over the Extrastiff wire and into the descending aorta. The balloon was withdrawn and the valve was mounted on the balloon. The valve was advanced over the aortic arch and into the aortic valve annulus. The pusher device
was withdrawn to allow for balloon expansion. Low volume aortography confirmed good position of the valve. The valve was deployed during rapid ventricular pacing. Echocardiography and aortography confirmed a good result with no aortic valve
insufficiency and a 5 mmHg mean gradient. The valve deployment system was removed. The White E sheath was then removed and hemostasis obtained with the two Perc-Close sutures. Final angiography demonstrated no evidence of ileofemoral
dissection/perforation and good runoff below the common femoral artery. The pacemaker and the pigtail catheter were removed. The left femoral artery sheath was removed using a 6 Tunisian Angio-Seal. The left femoral venous sheath was removed and
manual pressure was applied with excellent hemostasis.
Radiation
Dose (mGy): 171.92
DAP (cm2.Gy): 25.9100
Fluoroscopy time (minutes): 8.5
TAVR Echo Gradient (mmHg): 5
LV (s/x, mmHg): 222/20
TAVR Cath Gradient (mmHg): Not obtained.
Conclusions:
1. Successful placement of #26 Elle S3 Ultra aortic valve via right transfemoral approach with no acute complications.
Killian Benedict, DO, FACC, FACP
Copy to: Renny Wu D.O., Lance Gifford D.O.
[2023-12-16 11:58] LABS: Glucose - Point of Care 155 mg/dl (70-99)
--- NOTE | 2023-12-16 12:50 | PTCARENOTE ---
Pt returned from TAVR procedure. AOx3, no complaints of pain or discomfort. VSS, SR on tele monitor. Educated about restrictions and expected OOB time, pt verbalized understanding. B/L groin sites CDI. Call menjivar within reach.
--- NOTE | 2023-12-16 16:36 | PTCARENOTE ---
HR noted dropping to 40s briefly then up to 80s. Pt denies any symptoms. RN saundra Park PA-C, and Dr Benedict aware. Will continue to monitor.
[2023-12-16 16:50] LABS: Glucose - Point of Care 139 mg/dl (70-99)
[2023-12-16] MEDS: ZESTRIL PO (17:00)
[2023-12-16] MEDS: ANCEF 5 IV (18:14)
--- NOTE | 2023-12-16 20:29 | PTCARENOTE ---
Assumed care of patient at 1900, vs downloaded by me were from previous shift.
[2023-12-16] MEDS: DESENEX/MITRAZOL/ZEASORB 1 APPLIC TOPICAL (21:38)
[2023-12-16 22:14] LABS: Glucose - Point of Care 125 mg/dl (70-99)
[2023-12-17] VITALS (11 sets, daily range): BP systolic 123–165; BP diastolic 44–103; BMI 25.6
--- NOTE | 2023-12-17 01:01 | PTCARENOTE ---
OOB to bathroom. Denied any complaints of pain earlier when questioned. Bilateral groin sites wnl. Noted to have a red, non-raised rash under her breasts and lower abdomen and groin areas, c/o of rash itching. Desenex powder applied to rash, which
patient stated has helped. Sleeping at present.
--- NOTE | 2023-12-17 01:31 | PTCARENOTE ---
HR mostly 60-80 but noted to dip into the 40's at times.
[2023-12-17] MEDS: SYNTHROID 75 MCG PO (04:42)
[2023-12-17] MEDS: TYLENOL 500 MG PO ×2 (04:53→12:46)
[2023-12-17 05:03] LABS: Hematocrit 31.1 % (37.0-47.0); Hemoglobin 10.5 g/dL (12.0-16.0); Mean Corp Hgb Conc. 33.8 g/dL (33.0-37.0); Mean Corpuscular Volume 88.9 fL (81.0-99.0); Mean Platelet Volume 11.8 fL (7.4-10.4); Platelet Count 333 10^3/uL (130-400); Red Cell Dist. Width 13.7 % (11.5-14.5); White Blood Cell Count 11.9 10^3/uL (4.8-10.8)
[2023-12-17 05:30] LABS: Blood Urea Nitrogen 20 mg/dl (7-17); Calcium 9.9 mg/dl (8.4-10.2); Carbon Dioxide 23 mmol/L (22-30); Chloride 105 mmol/L (98-107); Estimated Creatinine Clearance 40 ml/min; Glucose 100 mg/dl (70-99); Potassium 5.1 mmol/L (3.5-5.1); Sodium 137 mmol/L (135-145); eGFR 51.75
[2023-12-17] MEDS: HYDROCORTISONE 1% CREAM 1 APPLIC TOPICAL ×2 (06:16→08:26)
--- NOTE | 2023-12-17 06:54 | W.PN.CT ---
Today's Communication / Plan
-
-pod #1
-no significant issues overnight
-sinus jessica with PACs, max pauses 2.1 sec. Had 2-3 beat runs of PVCs
-Echo today
-current meds (ASA, Lisinopril, Lipitor)
-encourage IS, OOB, ambulate
Assessment / Plan
-
- Severe symptomatic - s/p Right trans femoral TAVR with a 26 mm, nominal volume, White TAVR valve with pre-TAVR balloon valvuloplasty of the aortic valve on 12/16/23, pod #1
- Postop TTE: PreopLVEF was 60% and was 60% following TAVR without inotropic support, low-dose levo. The aortic valve was well seated without detectable PVL and mean gradient across the new valve was 5-7 mmHg.
- LVEDP was 20mmHg.
- New onset atrial arrhythmias
- Hypertension
- Hyperlipidemia
- Type 2 diabetes
- Preop anemia
- Migraines
- Depression/anxiety
- Fibromyalgia
- Osteopenia
- IBS
Discussed patient care with: Nursing and Care Team
Subjective
Procedure
- s/p Right trans femoral TAVR with a 26 mm, nominal volume, White TAVR valve with pre-TAVR balloon valvuloplasty of the aortic valve on 12/16/23
-
Date of Service: December 17, 2023
Objective Data
-
PT 13.3 Sec (11.4-14.6) 12/15/23 12:16
INR 1.01 12/15/23 12:16
APTT 29.2 Sec (23.4-35.0) 12/15/23 12:16
Vital Signs
Vital Signs
Temp Pulse Resp BP Pulse Ox
98.0 F 84 20 139/53 98
12/16/23 22:38 12/16/23 22:11 12/16/23 22:38 12/16/23 22:11 12/16/23 22:38
CT Intake/Output/Weight
12/16/23 12/16/23 12/17/23
06:59 18:59 06:59
Intake Total 720 / 720 1400 / 1640 240 / 1640
Balance 720 / 720 1400 / 1640 240 / 1640
SaO2: 98
Physical Exam
-
General: Awake and AOx3
Cardiovascular: Irregular rate & rhythm, No Murmurs and No Rub
Respiratory: Clear
Incision: Other (groins are cdi, soft, nontender, no hematoma b/l)
Extremities: No Edema (2+ DPs b/l)
Data Reviewed
-
Lab Results: Results Reviewed
Medications: Active Meds Reviewed
Chest X-Ray: Report Reviewed and Image Reviewed
ECG: Report Reviewed and Image Reviewed
--- NOTE | 2023-12-17 07:05 | W.PN.CD ---
Today's Communication / Plan
-
EP to see.
Possible PPM
DC planning.
Impression / Plan
-
Impression/Plan: 78 y/o female with HTN, HLD, NIDDM, non-obstructive CAD and critical admitted with worsening symptoms (primarily palpitations with some chest pressure) for expedited TAVR.
#Severe/Critical
-Chronic, progressive.
-S/P #26 White ELLE S3 TAVR via right transfemoral approach.
-Access sites are C/D/I.
-Antithrombotic therapy with aspirin.
-Telemetry shows sinus rhythm/sinus bradycardia, no evidence of AV block. The sinus bradycardia episodes predate the TAVR.
#Palpitations/Bradycardia
-Progressive.
-Discussed EKG's with EP. They believe there is latent sinus node dysfunction.
-We will avoid rate control agents.
-Monitor on telemetry.
-Discuss with EP this morning regarding PPM vs. monitor. I suspect she will need a PPM as we have no room to add beta joe or other rate control/suppressive agent.
#Rash
-Likely contact dermatitis.
-Resolving.
#HTN
-Chronic, stable.
-Continue lisinopril.
#HLD
-Chronic, stable.
-Continue atorvastatin 10 mg daily.
#NIDDM
-Chronic, stable.
-Metformin on hold due to procedure.
#PPx
-Enoxaparin for DVT/VTE.
-No role for PPI.
#Dispo
-Full code.
-EP to see.
-Discharge planning.
Subjective/Interval History:
Successful TAVR yesterday.
Patient continues to have sinus bradycardic episodes.
She is complaining of her underlying palpitations, unchanged since TAVR.
She developed a rash from the chlorhexedine.
DATA:
TTE, 11/25/2023:
CONCLUSIONS
Study quality suboptimal due to poor acoustic windows. There is normal
biventricular systolic function ejection fraction 55 to 60%. Regional wall
motion abnormalities cannot be adequately assessed.. There is grade 1
diastolic dysfunction. There is mild concentric left ventricular hypertrophy.
Left atrium is mildly dilated remainder of chambers of normal size. Aortic
valve is severely calcified. There is critical aortic stenosis with a mean
gradient of 80.5 mmHg peak gradient of 102.6 mmHg and aortic valve area of 0.5
cm sq. There is mild aortic regurgitation.
Results communicated to patient on date of study via phone conversation.
Cardiac Catheterization, 11/30/2023:
CORONARY ANGIOGRAPHY
Dominance: Right
Left Main: Normal
LAD: Moderate to severe proximal to mid LAD calcification. There is calcific 30% mid LAD stenosis and 40% distal LAD stenosis
Circumflex: Mild luminal irregularities
RCA: Dominant vessel with mild luminal irregularities in the RCA proper. The large PDA has 30% mid stenosis. There is a 60% stenosis in the distal AV groove extending into the origin of the large terminal right posterolateral branch
TAVR, 12/16/2023:
Conclusions:
1. Successful placement of #26 Elle S3 Ultra aortic valve via right transfemoral approach with no acute complications.
Physical Exam
Vital Signs/Labs
Vital Signs
Temp Pulse Resp BP Pulse Ox
36.8 C 44 18 152/55 97
12/17/23 05:01 12/17/23 06:00 12/17/23 05:01 12/17/23 04:34 12/17/23 05:01
12/15/23 12/16/23 12/17/23
11:59 11:59 11:59
Actual Weight 71.1 kg 71.8 kg
12/17/23 04:40
12/17/23 04:40
PT 13.3 Sec (11.4-14.6) 12/15/23 12:16
INR 1.01 12/15/23 12:16
APTT 29.2 Sec (23.4-35.0) 12/15/23 12:16
Magnesium 1.4 mg/dl (1.6-2.3) L 12/16/23 05:11
12/15/23
12:16
Jsw-X-Pinkrvhzaxw Pept 2810
LAB Results
12/15/23
13:56
Troponin I < 0.012
Physical Exam
Constitutional: No acute distress and Comfortable
EENT: Anicteric and Moist mucous membranes
Cardiovascular: Rhythm & rate is regular, Pedal edema is absent, JVD pressure is normal, S1S2 is normal and Murmur/rub/gallop absent
Respiratory: Respiratory effort normal, Lungs clear to auscul., Wheeze Absent, Crackles Absent and Rhonchi Absent
GI: Soft, Distention absent, Flat, Non tender and Normal bowel sounds
Neuro/Psych: AO x 3
Other: Cath Site (Bilateral femoral access sites are C/D/I.) and Other (Diffuse, macular rash, improving in spots.)
Data Reviewed
-
Date of Service: December 17, 2023
Medical Decision Making: Reviewed Test Results, Independent Historian Assessment and Test Interpretation
EKG: Tracing Personally Visualized and interpreted and Report Reviewed by me
Echo: Tracing Personally Visualized and interpreted and Report Reviewed by me
X-Ray/CT/US/MRI/NUC/PET: Image Personally Visualized and interpreted, Report Reviewed by me, Discussed with Physician, Discussed with Nurse, Discussed with Patient and Discussed with Family
Medical Tests (PFT, Pathology etc): Image Personally Visualized and interpreted, Report Reviewed by me, Discussed with Physician, Discussed with Nurse, Discussed with Patient and Discussed with Family
Labs: Labs Reviewed by me
Old Records: Reviewed
[2023-12-17 07:49] LABS: Glucose - Point of Care 105 mg/dl (70-99)
--- NOTE | 2023-12-17 07:50 | PTCARENOTE ---
Addendum entered by Gabriela Lanier RN 12/17/23 13:15:
Hydrocortisone cream applied as ordered.
Original Note:
While sitting upright in her bed, the patient experienced some dizziness. Her Bp 151/44, HR 64, BSG 105. Her dizziness has subsided however she still complains of a headache and rates it a 3/10 on scale. Tylenol was given at 0453. Notified Alayna
Isreal BLISS.
--- NOTE | 2023-12-17 07:53 | W.PN.ANS.POP ---
Anesthesia Post Operative
- Anesthesia Post Op Note
Vital Signs Stable-See Nursing Note: Yes
Airway Patent: Yes
Adequate Pain Control: Yes
Change in Mental Status: No
Current Postoperative Nausea & Vomiting: No
Anesthesia Complications: No
General Anesthetic Recall: No
Unplanned Admission: No
Post Op Hydration Adequate: Yes
[2023-12-17] MEDS: LEXAPRO 10 MG PO (08:22)
[2023-12-17] MEDS: FEOSOL 325 MG PO (08:22)
[2023-12-17] MEDS: ZESTRIL 40 MG PO (08:22)
[2023-12-17] MEDS: ASPIR LOW (ENTERIC COATED) 81 MG PO (08:22)
[2023-12-17] MEDS: LIPITOR 10 MG PO (08:22)
[2023-12-17] MEDS: BENADRYL 25 MG PO ×2 (08:23→22:06)
[2023-12-17] MEDS: NOVOLOG FLEXPEN-LOW RESISTANCE SC ×2 (08:24→12:51)
[2023-12-17] MEDS: FLUSH (NSS) 2 FLUSH IV ×2 (08:24→17:07)
[2023-12-17] MEDS: DESENEX/MITRAZOL/ZEASORB 1 APPLIC TOPICAL ×2 (08:25→19:51)
--- NOTE | 2023-12-17 08:25 | PTCARENOTE ---
The patient is aaox3, vss, 97% on RA. She c/o 'dizziness at times'. Sinus jessica with a first degree AVB noted on the monitor. Heart rates fluctuates in the 40s-50s. Her BL groin site dressings are c/d/i. However, she does have a pruritic rash spread
over her upper chest, left neck, under her BL breasts, abdomen, groin, and upper inner thighs. She states that it developed after her TVAR. She said that after she was cleaned with the CHG wipes, her skin became irritated.
--- NOTE | 2023-12-17 12:15 | ITS.CL.PACE ---
Set Up Person - Pacemaker Implant
Pacemaker Implant
Procedure Report:
Dual Chamber Pacemaker Placement:
Ms. Rocha is a very pleasant 78 yrs old woman who presented with bradycardia with chronotropic insufficiency and frequent bouts of paroxysmal atrial tachycardia, with PACs and PVCs and sick sinus syndrome with tachy-jessica syndrome s/p TAVR for
severe aortic stenosis and is recommended for PPM placement. Patient is a left handed person and wants a right sided device.
Indications: Sick sinus syndrome and tachy-jessica syndrome
Date of the Procedure: 12/17/2023
Pre-Operative Diagnosis: Sick sinus syndrome and tachy-jessica syndrome
Post-Operative Diagnosis: Sick sinus syndrome and tachy-jessica syndrome
Procedure Performed: DUAL CHAMBER PACEMAKER IMPLANTATION
Performing Physician:
Saw Tamayo MD
Anesthesia:
See anesthesia records
Pre-operative antibiotics:
Ancef 2gm IV
Detailed Description of the Procedure:
The patient was identified using hospital identification and informed consent obtained for the procedure. The risks were explained including, but not limited to: Bleeding, infection, arrhythmia, stroke, vascular/cardiac/lung puncture, surgery,
pacemaker dependency/device malfunction. All questions were answered.
The patient was brought to the electrophysiology laboratory in stable condition in fasting state. Continuous electrocardiographic and hemodynamic monitoring was initiated.
The initial rhythm was normal sinus rhythm with frequent atrial ectopy.
A surgical pause and time out was performed immediately prior to the procedure with review of her medical history, recent labs, allergies and medications with site of procedure identified and consent noted in the chart. Antibiotics pre operatively
given. All team members concurred.
The procedure site was meticulously prepared with surgical scrub and allowed to dry with no pooling. Sterile draping was applied to cover the procedure site. The image intensifier was draped with sterile bag and positioned over the patient.
The right upper extremity venogram was done and the axillary route identified. There was patent subclavian vein. There was no cephalic vein noted. Following infiltration with local anesthetic, the axillary vein was accessed using the micro-puncture
apparatus. The vascular sheaths were introduced for lead access. The leads were advanced into the right ventricle and the right atrium.
The right ventricular lead was secured in position with an active fixation technique at the apical septal location.
The atrial lead was positioned on the lateral location of the right atrial appendage with active fixation.
There was excellent sensing, pacing, and impedance from the leads, with no diaphragmatic stimulation at 10 V output.�Bovie cautery, antibiotics, and fluoroscopy were used.
The sheaths were withdrawn, and the thresholds remained acceptable. The leads were secured in position at the venous entry site with 0-silk. A pocket was fashioned contiguous to the incision. The electrode terminals were connected to the pulse
generator, which was placed into the pocket. The wound was irrigated thoroughly with antibiotic solution.
The device was anchored to the underlying fascia using 0-silk sutures.
The wound was closed in 3 layers using 2-0 VLoc then two layers of 4-0 V loc sutures to the dermis. Steri-strips were applied externally and covered with Aquacel bandage.
Procedure End:
The procedure was tolerated well.
Estimated Blood loss:
5 cc
Specimens Removed:
No cultures and no specimens were obtained. No intraoperative pathology was identified.
Fluoro time:
2.4 min / 2.6mGy
Urine output:
None
Packs / Drains/ Tubes:
None
Instrument / Sponge Count Correct:
Yes
Complications of the Procedure:
None
Condition of Patient at Time of Transfer:
Hemodynamically stable with no neurological or vascular compromise.
Device information:�
Generator: OnDeck; Model: [id number]; Serial # [id number]
Atrial Lead:
OnDeck; Model: 5076-45; Serial # [id number]
Measured data in the right atrium was sensing of 1.4 mV, impedance of 560 ohms and threshold of 1.5 V at 0.4ms.
RV Lead:
[employer]; Model: 5076-52; Serial # [id number]
Measured data in the RV lead was sensing of 7 mV, impedance of 820 ohms and threshold of 1.5 V at 0.4ms�
Jessica parameter settings were AAIR < = > DDDR 70-130 bpm. �
����������� Mode Switch: On
����������� Paced AV interval: 180ms
����������� Sensed AV interval: 150 ms.
����������� Rate Adaptive A-V Interval: Off
Output parameters:
����������������������� Amplitude (V)������������� Pulse Width (ms)������� Sensitivity (mV)
����������� RA: ���� 3.5 ����������������� 0.4������������������ 0.3
����������� RV:����� 3.5������������������ 0.4������������������ 0.9
Summary:
Successful implantation of MRI compatible dual chamber Medtronic pacemaker
Results/Recommendations:
-Please follow up CXR�
1. Please provide patient with adequate pain control�
Instructions to be given to patient:�
- Please follow up with [facility] at [address] [place] [address] ([phone]) to get your wound checked within 14 days of your discharge.
- Do not wet incision site until after it is evaluated at cardiology clinic. No soaking or bath until then. Showers or Sponge baths are OK.�Dab dry the area after a shower.
- Do not lift right elbow above shoulder, particularly with sudden jerking movements, for 1 month�
- Do not lift anything weighing more than 10 pounds with the right arm for 1 month�
- If you notice any fevers, shortness of breath, lightheadedness, chest pain, or worsening swelling in the wound site, please contact the arrhythmia clinic, contact your sap security consultant, or present to the hospital for evaluation.�
Saw Tamayo MD
Electrophysiology
--- NOTE | 2023-12-17 12:39 | PTCARENOTE ---
Addendum entered by Gabriela Lanier RN 12/17/23 12:57:
A-pacing on the monitor with heart rates in the 70s.
Original Note:
Received the patient from the labor employment associate in her bed. The patient is aaox3, vss, 98% on RA. She is feeling 'groggy' from the sedation. Her right chest wall Aquacel dressing is c/d/i. A right arm immobilizer is in place. She complains of a headache and
rates it a 6/10 on scale. I instructed the patient on her activity restrictions and her expected oob time, will medicate her headache with Tylenol.
[2023-12-17 12:51] LABS: Glucose - Point of Care 104 mg/dl (70-99)
[2023-12-17 13:42] LABS: Glucose - Point of Care 101 mg/dl (70-99)
--- NOTE | 2023-12-17 14:33 | CM ---
Chart reviewed. Patient is independent of ADLS, lives alone in a 1 [address], 5 SAMREEN, 0 DME. Patient went had a PPM placed today. Patient is going to her son and DIL house in [place], [address], 1st floor set up. Patient denied a VN visit. Patient's DIL
is a RN. Plan is for the patient to return home and receive a follow up phone call from CT Transitional RN. CM to follow
[2023-12-17 16:10] LABS: Glucose - Point of Care 160 mg/dl (70-99)
[2023-12-17] MEDS: ANCEF 5 IV (17:07)
[2023-12-17] MEDS: NOVOLOG FLEXPEN-LOW RESISTANCE 1 UNITS SC (17:08)
--- NOTE | 2023-12-17 19:16 | PTCARENOTE ---
Pt. received at change of shift. Pt. AOx3. VS WNL. Pacemaker site at right chest wall. Immobilizer still in place on right arm. Pt. only complaining of rash throughout body. Continuing to monitor the pt. at this time.
[2023-12-17 22:05] LABS: Glucose - Point of Care 131 mg/dl (70-99)
[2023-12-18] MEDS: ANCEF 5 IV (00:48)
[2023-12-18] MEDS: TYLENOL 500 MG PO ×2 (01:44→09:45)
[2023-12-18 02:25] LABS: Hemoglobin 11.3 g/dL (12.0-16.0); Mean Corp Hgb Conc. 34.2 g/dL (33.0-37.0); Mean Corpuscular Hgb 30.2 pg (27.0-31.0); Mean Corpuscular Volume 88.2 fL (81.0-99.0); Mean Platelet Volume 11.3 fL (7.4-10.4); Platelet Count 312 10^3/uL (130-400); Red Blood Cell Count 3.74 10^6/uL (4.20-5.40); Red Cell Dist. Width 13.7 % (11.5-14.5); White Blood Cell Count 13.5 10^3/uL (4.8-10.8)
[2023-12-18 02:39] LABS: Blood Urea Nitrogen 19 mg/dl (7-17); Calcium 10.2 mg/dl (8.4-10.2); Carbon Dioxide 24 mmol/L (22-30); Chloride 105 mmol/L (98-107); Estimated Creatinine Clearance 40 ml/min; Glucose 142 mg/dl (70-99); Potassium 4.6 mmol/L (3.5-5.1); Sodium 138 mmol/L (135-145); eGFR 51.75
[2023-12-18 03:07] VITALS: BP 127/52
[2023-12-18 03:22] VITALS: BMI 25.5
[2023-12-18] MEDS: SYNTHROID 75 MCG PO (04:39)
--- NOTE | 2023-12-18 06:33 | W.PN.CT ---
Today's Communication / Plan
-
Looks great and feels good on room air
Now paced via PPM. Some swelling over insertion site however soft and no evidence of hematoma. No chest x-ray the morning
Groin soft.
No objections from surgical perspective for discharge today.
Further management per cardiology.
Assessment / Plan
-
- Severe symptomatic - s/p Right trans femoral TAVR with a 26 mm, nominal volume, White TAVR valve with pre-TAVR balloon valvuloplasty of the aortic valve on 12/16/23, pod #1
- Postop TTE: PreopLVEF was 60% and was 60% following TAVR without inotropic support, low-dose levo. The aortic valve was well seated without detectable PVL and mean gradient across the new valve was 5-7 mmHg.
- LVEDP was 20mmHg.
- New onset atrial arrhythmias
- Hypertension
- Hyperlipidemia
- Type 2 diabetes
- Preop anemia
- Migraines
- Depression/anxiety
- Fibromyalgia
- Osteopenia
- IBS
Subjective
Procedure
- s/p Right trans femoral TAVR with a 26 mm, nominal volume, White TAVR valve with pre-TAVR balloon valvuloplasty of the aortic valve on 12/16/23
Feels ok. Complaining of intermittent headache yesterday which she says is now minimal.
-
Date of Service: December 18, 2023
Objective Data
-
Lab Results
12/18/23 02:13
12/18/23 02:13
PT 13.3 Sec (11.4-14.6) 12/15/23 12:16
INR 1.01 12/15/23 12:16
APTT 29.2 Sec (23.4-35.0) 12/15/23 12:16
Vital Signs
Vital Signs
Temp Pulse Resp BP Pulse Ox
98.5 F 70 18 127/52 98
12/18/23 03:00 12/18/23 04:00 12/18/23 03:00 12/18/23 03:07 12/18/23 03:00
CT Intake/Output/Weight
12/17/23 12/17/23 12/18/23
06:59 18:59 06:59
Intake Total 240 / 1640 360 / 510 150 / 510
Output Total 100 / 100
Balance 240 / 1640 360 / 410 50 / 410
SaO2: 98
Physical Exam
-
General: Awake and Oriented
Cardiovascular: No Murmurs, No Rub, No Gallop and Other (paced via PPM. Insertion site with some swelling but soft.)
Respiratory: Clear and Equal
Extremities: No Edema
Data Reviewed
-
Lab Results: Results Reviewed
Chest X-Ray: Image Reviewed
[2023-12-18 07:19] VITALS: BP 140/52
[2023-12-18 07:35] LABS: Glucose - Point of Care 123 mg/dl (70-99)
[2023-12-18] MEDS: NOVOLOG FLEXPEN-LOW RESISTANCE SC (07:53)
[2023-12-18 09:24] VITALS: BP 126/54
[2023-12-18 09:36] VITALS: BP 111/53
[2023-12-18] MEDS: ZESTRIL 40 MG PO (09:41)
[2023-12-18] MEDS: LEXAPRO 10 MG PO (09:41)
[2023-12-18] MEDS: ASPIR LOW (ENTERIC COATED) 81 MG PO (09:41)
[2023-12-18] MEDS: FEOSOL 325 MG PO (09:41)
[2023-12-18] MEDS: LIPITOR 10 MG PO (09:42)
[2023-12-18] MEDS: DESENEX/MITRAZOL/ZEASORB 1 APPLIC TOPICAL (09:43)
[2023-12-18] MEDS: FLUSH (NSS) 2 FLUSH IV (09:43)
[2023-12-18 09:49] VITALS: BP 111/53; BP 126/54; PULSE 81; O2SAT 98; O2SAT 99
--- NOTE | 2023-12-18 10:47 | W.DS.TRANS ---
Addendum entered and electronically signed by Penny Morales NP 12/18/23 12:12:
Metformin 1000mg by mouth BID to restart on 12/19/23.
Addendum entered and electronically signed by Nathan Angulo MD 12/18/23 11:37:
Agree with below.
Original Note:
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
-
Discharge Instructions:
Discharge Diagnosis/Procedures /TAVR, Dual chamber Pacemaker implant
Diet Low Cholesterol,Low Sodium
Activity As tolerated
Driving Restrictions No driving for 1 week
Bathing Restrictions OK to Shower
Others Tests Follow Up Echocardiogram: 01/18/2024 at 2:40pm in
Dr. Wu's office.
Other Services Cardiac Rehab
Wound Care Please do not apply lotions, creams or powders
to groin areas. Please monitor for increased
pain, swelling, redness or drainage. Please call
your doctor if any occur.
Specialty Instructions Weigh Daily
Instructions:
Stand-Alone Forms: DC Inst - Implanted Device
Changes to Home Medications: Yes
Discharge Medications:
DC Medications w/original date entered in [employer]
atorvastatin 10 mg tablet 10 mg PO DAILY High Cholesterol 11/30/23
escitalopram oxalate 10 mg tablet 10 mg PO DAILY Mental Health 11/30/23
levothyroxine 75 mcg tablet 75 mcg PO DAILY Thyroid 11/30/23
lisinopril 20 mg tablet 40 mg PO DAILY Blood Pressure 11/30/23
meloxicam 15 mg tablet 15 mg PO DAILYPRN PRN moderate pain 11/30/23
metformin 500 mg tablet 1,000 mg PO BID Diabetes 11/30/23
aspirin 81 mg tablet,delayed release 81 mg PO DAILY Blood Clot Prevention/Tx 12/13/23
ibandronate 150 mg tablet 150 mg PO QMONTH bone health 12/13/23
loperamide 2 mg capsule 2 mg PO DAILYPRN PRN Diarrhea 12/13/23
acetaminophen 500 mg tablet (Tylenol Extra Strength) 500 mg PO Q6HPRN PRN headache 12/15/23
ferrous sulfate 325 mg (65 mg iron) tablet 325 mg PO DAILY Supplement 12/15/23
metoprolol succinate 25 mg tablet,extended release 24 hr 25 mg PO DAILY Heart disease/condition 30 days #30 tabs 12/18/23
Home Medication Changes
metoprolol succinate 25mg by mouth daily
Pending Results: No
[2023-12-18 10:59] VITALS: BP 128/44
[2023-12-18] MEDS: TOPROL XL 25 MG PO (11:20)
[2023-12-18] MEDS: HYDROCORTISONE 1% CREAM 1 APPLIC TOPICAL (11:20)
--- NOTE | 2023-12-18 11:28 | PTCARENOTE ---
The patient's headache decreased to a 3/10 on scale from this morning's 8/10. She states that she is feeling much better now and the nausea is gone. She is anxious to go home. I removed her BL groin dressings and instructed her on aftercare
management for all procedural areas.
--- NOTE | 2023-12-18 12:05 | W.PN.CD ---
Addendum entered and electronically signed by Nathan Angulo MD 12/18/23 13:19:
Patient seen and examined in collaboration with ASSISTANT MECHANIC; agree with below.
-Patient is stable status-post pacemaker implantation yesterday.
-Discharge to home today.
-Outpatient follow-up with Cardiology.
Original Note:
Today's Communication / Plan
-
d/c home
Impression / Plan
-
Impression/Plan: 78 y/o female with HTN, HLD, NIDDM, non-obstructive CAD and critical admitted with worsening symptoms (primarily palpitations with some chest pressure) for expedited TAVR.
#Severe/Critical
-Chronic, progressive.
-S/P #26 White ELLE S3 TAVR via right transfemoral approach.
-Access sites are C/D/I.
-Antithrombotic therapy with aspirin.
#Palpitations/Bradycardia
-Progressive. s/p DC PPM
-R pectoral site stable.
-CXR no pneumothorax
-
#Rash
-Likely contact dermatitis.
-improving, local care
#HTN
-con't meds
#HLD
-Chronic, stable.
-Continue atorvastatin 10 mg daily.
#NIDDM
-Chronic, stable.
-Metformin on hold due to procedure.
#PPx
-Enoxaparin for DVT/VTE.
-No role for PPI.
#Dispo
d/c home
IC in 1 week
f/u Dr. Wu primary window shade ring sewer
Subjective/Interval History:
Pt with headache today. Mild R pectoral incisional discomfort.
DATA:
TTE, 11/25/2023:
CONCLUSIONS
Study quality suboptimal due to poor acoustic windows. There is normal
biventricular systolic function ejection fraction 55 to 60%. Regional wall
motion abnormalities cannot be adequately assessed.. There is grade 1
diastolic dysfunction. There is mild concentric left ventricular hypertrophy.
Left atrium is mildly dilated remainder of chambers of normal size. Aortic
valve is severely calcified. There is critical aortic stenosis with a mean
gradient of 80.5 mmHg peak gradient of 102.6 mmHg and aortic valve area of 0.5
cm sq. There is mild aortic regurgitation.
Cardiac Catheterization, 11/30/2023:
CORONARY ANGIOGRAPHY
Dominance: Right
Left Main: Normal
LAD: Moderate to severe proximal to mid LAD calcification. There is calcific 30% mid LAD stenosis and 40% distal LAD stenosis
Circumflex: Mild luminal irregularities
RCA: Dominant vessel with mild luminal irregularities in the RCA proper. The large PDA has 30% mid stenosis. There is a 60% stenosis in the distal AV groove extending into the origin of the large terminal right posterolateral branch
TAVR, 12/16/2023:
Conclusions:
1. Successful placement of #26 Elle S3 Ultra aortic valve via right transfemoral approach with no acute complications.
Physical Exam
Vital Signs/Labs
Vital Signs
Temp Pulse Resp BP Pulse Ox
98.2 F 74 16 128/44 99
12/18/23 11:00 12/18/23 11:00 12/18/23 11:00 12/18/23 10:59 12/18/23 11:00
12/17/23 12/18/23 12/19/23
06:59 06:59 06:59
Actual Weight 71.8 kg 71.7 kg
12/18/23 02:13
12/18/23 02:13
PT 13.3 Sec (11.4-14.6) 12/15/23 12:16
INR 1.01 12/15/23 12:16
APTT 29.2 Sec (23.4-35.0) 12/15/23 12:16
Magnesium 1.4 mg/dl (1.6-2.3) L 12/16/23 05:11
12/15/23
12:16
Qmx-F-Agelvbhckej Pept 2810
LAB Results
12/15/23
13:56
Troponin I < 0.012
Physical Exam
Cardiovascular: Rhythm & rate is regular and Pedal edema is absent
Respiratory: Respiratory effort normal and Lungs clear to auscul.
Neuro/Psych: AO x 3
Other: Cardiac Device Site (R pectoral site dressing intact no hematoma)
Data Reviewed
-
Date of Service: December 18, 2023
EKG: Tracing Personally Visualized and interpreted (NSR / AP/VS 77 bpm )
== END 2023-12-18 14:20 | disposition home or self-care (01) | DRG 267 ==
LOC: IVU 15:44
PROVIDERS: Emergency Medicine; Internal Medicine Cardiovascular Disease; Nurse Practitioner; Physician Assistant Medical; Thoracic Surgery (Cardiothoracic Vascular Surgery); ADMITTING PHYSICIAN Internal Medicine Cardiovascular Disease; EMERGENCY PHYSICIAN Emergency Medicine; FAMILY PHYSICIAN Family Medicine
PROC: 02RF38Z Replacement of Aortic Valve with Zooplastic Tissue, Percutaneous Approach (ICD-10-PCS; 2023-12-16)
PROC: 0JH606Z Insertion of Pacemaker, Dual Chamber into Chest Subcutaneous Tissue and Fascia, Open Approach (ICD-10-PCS; 2023-12-17)
PROC: 02HK3JZ Insertion of Pacemaker Lead into Right Ventricle, Percutaneous Approach (ICD-10-PCS; 2023-12-17)
PROC: 02H63JZ Insertion of Pacemaker Lead into Right Atrium, Percutaneous Approach (ICD-10-PCS; 2023-12-17)
DX: I35.0 Nonrheumatic aortic (valve) stenosis (principal); I10 Essential (primary) hypertension; E78.00 Pure hypercholesterolemia, unspecified; I25.10 Atherosclerotic heart disease of native coronary artery without angina pectoris; E11.9 Type 2 diabetes mellitus without complications; E03.9 Hypothyroidism, unspecified; M19.90 Unspecified osteoarthritis, unspecified site; E87.5 Hyperkalemia; K58.9 Irritable bowel syndrome, unspecified; M79.7 Fibromyalgia; F41.9 Anxiety disorder, unspecified; F32.A Depression, unspecified; I49.5 Sick sinus syndrome; L25.9 Unspecified contact dermatitis, unspecified cause; Z79.82 Long term (current) use of aspirin; Z79.84 Long term (current) use of oral hypoglycemic drugs; Z79.899 Other long term (current) drug therapy; Z87.891 Personal history of nicotine dependence
CPT/HCPCS: 93308; 33208; 33361; 36415; 71045; 71046; 80048; 80053; 81003; 81015; 82248; 82962; 83036; 83735; 83880; 84443; 84484; 85025; 85027; 85347; 85610; 85730; 86850; 86900; 86901; 86920; 87070; 87086; 93005; 93306; 93321; 93325; 99284; C1760; C1769; C1892; C1894; Q9967

== ENCOUNTER 2024-01-21 12:38 | Emergency (ER) | payer OTHER, SELFPAY ==
[2024-01-21] VITALS (9 sets, daily range): BP systolic 119–189; BP diastolic 65–109; BMI 25.8
--- NOTE | 2024-01-21 13:12 | ED.GENMED ---
History of Present Illness
General
Chief Complaint: Chest Pain
Time Seen by Provider: 01/21/24 13:12
History of Present Illness
History of Present Illness:
HPI: TAVR 12/15 and Pacer 12/16. Was at cardiac rehab today, felt dizzy while walking on the treadmill ('I'm not used to exercising'), without chest pain, but 'could feel my heart beating and they said my BP was high'. SBP was 175 here then 127 on
recheck w/o intervention. Recent cath by Guide showed mild CAD. EKG today in intermittently A Paced. She has no symptoms now.
EXAM:
GENERAL: Well appearing in no distress
HEENT: Moist oral mucosa
CARDIOVASCULAR: No murmurs, normal heart rate, intermittently irregular rhythm, No chest wall tenderness, recent surgical wound from pacemaker placement to the right anterior chest wall
PULMONARY: No respiratory distress, breath sounds are clear and equal
ABDOMEN: Soft with no peritoneal signs, no tenderness
NEUROLOGIC: Excellent strength all extremities, no coordination deficits
PSYCHIATRIC: Appropriate mental status, normal insight and judgement
EXTREMITIES: Nontender, no edema, moves all extremities equally
SKIN: No rash, no lesions
TIME OF INITIAL ENCOUNTER: 1:30 PM
NUMBER AND COMPLEXITY OF PROBLEMS ADDRESSED AT THE ENCOUNTER
� Chronic conditions affecting care: TAVR and pacer placement 2023, high blood pressure, hyperlipidemia, hypothyroidism, diabetes, anxiety
� Acute Exacerbation and/or Progression of Chronic Illness:
� Differential Diagnosis includes: Anxiety, dysrhythmia, doubt PE�vital signs not consistent with PE she has no ongoing symptoms, pacemaker malfunction
AMOUNT AND/OR COMPLEXITY OF DATA TO BE REVIEWED AND ANALYZED
� I performed an independent evaluation of and my interpretation is:
EKG: Intermittent atrial paced rate of 76
CT:
X-rays:
Laboratory Studies: Troponin negative x 2, white count 9.9, hemoglobin 10.9 which is just slightly lower than prior, creatinine slightly elevated 1.1, magnesium 1.2
Other:
� Review of other/old records: I reviewed records, the patient had TAVR 12/16/2023; recent cath showed mild CAD
� Clinical information was obtained by an independent historian: None needed
� Prescriptions/Medications Considered but not given:
� Further testing considered but not performed: Consider checking thyroid however this was just checked 5 weeks ago
RISK OF COMPLICATIONS AND/OR MORBIDITY OR MORTALITY OF PATIENT MANAGEMENT
� Social determinants of health affecting care: Lives at home
� Discussion with other providers: I discussed case with Dr. Amaral recommended repeat troponin and magnesium supplementation. He also gave Tylenol for headache and gave additional beta-joe for blood pressure control.
� Escalation of care including admission/observation vs risk of discharge considered: On reassessment, the patient feels fine and is eager to go home. She is concerned about going home too late. Was given some IV magnesium did
have palpitations in the setting of low potassium and I have also ordered oral magnesium supplementation. 2 troponins are negative.
Phy Exam
Physical Exam
Physical Exam:
See HPI
Scores
Heart Score for Chest Pain Patients
STEMI patient?: Not applicable
Course
Orders/Labs/Results
Orders:
Orders
01/21/24 12:43
EKG [Electrocardiogram (*1)] Urgent
Reason for Study: Chest Pain
EKG- Treatment ONCE
01/21/24 13:26
0.9% Sodium Chloride 500 ml [Nss] 500 ml IV BOLUS
01/21/24 13:45
Complete Blood Count/With Diff Urgent
Comprehensive Metabolic Panel Urgent
Magnesium Urgent
Troponin I Urgent
01/21/24 16:20
Troponin I Urgent
01/21/24 16:25
Acetaminophen [Tylenol] 1,000 mg PO NOW STA
Metoprolol [Lopressor] 12.5 mg PO NOW STA
01/21/24 16:27
Magnesium Sulfate 1 G/D5w [Magnesium Sulfate] 1 gm in 100 ml IV NOW
01/21/24 17:46
Magnesium Oxide 1,000 mg PO NOW STA
Abnormal Lab Results
01/21/24
13:45
RBC 3.67 L 10^6/uL
(4.20-5.40)
Hgb 10.9 L g/dL
(12.0-16.0)
Hct 33.2 L %
(37.0-47.0)
MCHC 32.8 L g/dL
(33.0-37.0)
Absolute Monos (auto) 0.7 H 10^3/uL
(0.1-0.6)
Creatinine 1.1 H mg/dL
(0.6-1.0)
Calcium 10.4 H mg/dl
(8.4-10.2)
Magnesium 1.2 L mg/dl
(1.6-2.3)
01/21/24 13:45
01/21/24 13:45
Vital Signs
Initial and Last Documented VS:
Initial Vital Signs
Temp Pulse Resp BP Pulse Ox
98.2 F 82 16 175/84 97
01/21/24 12:45 01/21/24 12:45 01/21/24 12:45 01/21/24 12:45 01/21/24 12:45
Last Documented Vital Signs
Temp Pulse Resp BP Pulse Ox
98.2 F 79 13 189/78 100
01/21/24 12:45 01/21/24 16:15 01/21/24 16:15 01/21/24 16:57 01/21/24 16:00
*Critical Care Note
Total Time (30-74mins, 75-104mins- exclusive of procedures): Not Applicable
ED Attending Note
-
Portions of this chart may have been created with voice recognition software.� Occasional wrong word or��sound alike� substitutions may have occurred due to the inherent limitations of voice recognition software.
Discharge Plan
Departure
Patient Disposition: Home (Routine Discharge)
Date of Disposition: 01/21/24
Time of Disposition: 17:47
Patient with high blood pressure during this ER visit?: Yes
Discharge Problem:
Palpitations
Prescriptions:
No Action
metformin 500 mg Tablet
1,000 mg PO BID
atorvastatin 10 mg Tablet
10 mg PO DAILY
meloxicam 15 mg Tablet
15 mg PO DAILYPRN PRN (Reason: moderate pain)
lisinopril 20 mg Tablet
40 mg PO DAILY
levothyroxine 75 mcg Tablet
75 mcg PO DAILY
escitalopram oxalate 10 mg Tablet
10 mg PO DAILY
aspirin 81 mg Tablet,Delayed Release (Dr/Ec)
81 mg PO DAILY
loperamide 2 mg Capsule
2 mg PO DAILYPRN PRN (Reason: Diarrhea)
ibandronate 150 mg Tablet
150 mg PO QMONTH
acetaminophen [Tylenol Extra Strength] 500 mg Tablet
500 mg PO Q6HPRN PRN (Reason: headache)
ferrous sulfate 325 mg (65 mg iron) Tablet
325 mg PO DAILY
metoprolol succinate 25 mg Tablet Extended Release 24 Hr
25 mg PO DAILY 30 Days Qty: 30 1RF
Referrals:
Lance Gifford DO [Family Provider] -
Activity Restrictions/Additional Instructions:
Your magnesium level is low at 1.2�it was also low when you are here over a month ago. I recommend that you take magnesium supplementation which can be found [id number]. Follow-up your primary care doctor as well as with your service mechanic.
Interventions
Interventions:
*Risk Screen - Suicide Last Done: 01/21/24 12:45
*General Assessment Last Done: 01/21/24 12:45
*Neglect/Abuse Screening Last Done: 01/21/24 12:45
ED- Fall Risk Assessment Last Done: 01/21/24 13:11
*ED COVID-19 Vaccine History Last Done: 01/21/24 13:11
ED- Cardiac Assessment Last Done: 01/21/24 13:11
Discharge Date and Time
Print Language: MACEDONIAN
[2024-01-21 14:02] LABS: % Basophils 0.6 % (0-2); % Eosinophils 2.9 % (0-6); % Immature Granulocytes 0.3 % (0-0.5); % Lymphocytes 25.9 % (20.5-51.1); % Monocytes 7.2 % (1.7-9.3); % Neutrophils 63.1 % (42.2-75.2); Absolute Basophils 0.1 10^3/uL (0-0.2); Absolute Eosinophils 0.3 10^3/uL (0-0.7); Absolute Lymphocytes 2.6 10^3/uL (1.2-3.4); Absolute Monocytes 0.7 10^3/uL (0.1-0.6); Absolute Neutrophils 6.2 10^3/uL (1.4-6.5); Hematocrit 33.2 % (37.0-47.0); Hemoglobin 10.9 g/dL (12.0-16.0); Mean Corp Hgb Conc. 32.8 g/dL (33.0-37.0); Mean Corpuscular Hgb 29.7 pg (27.0-31.0); Mean Corpuscular Volume 90.5 fL (81.0-99.0); Mean Platelet Volume 10.4 fL (7.4-10.4); Nucleated Red Blood Cells % 0 %; Platelet Count 384 10^3/uL (130-400); Red Blood Cell Count 3.67 10^6/uL (4.20-5.40); Red Cell Dist. Width 14.2 % (11.5-14.5); White Blood Cell Count 9.9 10^3/uL (4.8-10.8)
[2024-01-21 14:23] LABS: ALT (SGPT) 13 U/L (0-35); AST (SGOT) 28 U/L (14-36); Albumin 4.3 g/dl (3.5-5.0); Alkaline Phosphatase 95 U/L (38-126); Blood Urea Nitrogen 17 mg/dl (7-17); Calcium 10.4 mg/dl (8.4-10.2); Carbon Dioxide 25 mmol/L (22-30); Chloride 104 mmol/L (98-107); Estimated Creatinine Clearance 40 ml/min; Glucose 94 mg/dl (70-99); Magnesium 1.2 mg/dl (1.6-2.3); Sodium 141 mmol/L (135-145); Total Bilirubin 1.1 mg/dl (0.2-1.3); Total Protein 6.6 g/dl (6.3-8.2); eGFR 51.75
[2024-01-21 14:25] LABS: Troponin I < 0.012 ng/ml
[2024-01-21] MEDS: NSS 500 IV (14:58)
--- NOTE | 2024-01-21 15:42 | CON.CAR ---
Addendum entered and electronically signed by Nilay Amaral MD 01/21/24 16:30:
increase metoprolol to 25mg BID starting tomorrow
Addendum entered and electronically signed by Nilay Amaral MD 01/21/24 16:25:
78-year-old woman with a history of TAVR 12/16/2023, pacemaker implantation 12/17/2023, hypertension and diabetes who went to rehab today and was sent to the ER after having symptoms related to exercise. Patient states that she has been feeling fine
she did rehab and found it difficult to keep on the treadmill had some dizziness which then improved after she rested she also felt her heart beating in her epigastrium and in her throat. Initially in discussion with cardiac rehab there was concern
that she may be having chest discomfort or epigastric discomfort but in further discussion with the patient it sounds as if she just felt her heart beating fast in her epigastrium and in her throat. These are similar symptoms to what she had prior
to having TAVR. She says she has been told she has extra beats in the past and thought it would improve with TAVR. Currently without chest pain without palpitation and is feeling fine. Wants to go home. Blood pressure is elevated in the ER but
it sounds as if her blood pressure has been stable at home. She does intermittently have headaches and did have 1 today. First troponin unremarkable I suspect most of her symptoms were related to feeling her heartbeat combination of increased
heart rate related to difficulty keeping up with the treadmill and deconditioning patient's also had PACs which he may be feeling and also could be feeling some pacing.
-Await second troponin
-Tylenol now
-Will give additional medication for blood pressure control
-Continue lisinopril as prescribed and give evening dose. Patient states that she is taking 40 mg twice a day although it is possible she is taking 20 mg twice a day for a total dose of 40 mg.
-Replace magnesium
-If patient continues to feel well second troponin is unremarkable and blood pressure improved then would consider discharge from the ER with additional outpatient follow-up.
Original Note:
Consultation
Consultation Request
Date/Time Consultation Requested: 01/21/24 2p
Date/Time Consultation Performed: 01/21/24 3:30p
Requesting Provider: Dr. Wilkinson
Performing Provider: FIDELINA Natarajan for Dr. Amaral
Reason for Consultation: dizziness, nausea, palpitations
Medical History
-
Chief Complaint: dizziness, nausea, palpitations
History of Present Illness:
Mrs. Rocha is a 78 yo female (patient of Dr. 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
dizziness and palpitations while exercising on the treadmill today at cardiac rehab. This was her first cardiac rehab session today. Symptoms lasted until she got off the treadmill and rested. Currently she denies any cardiac symptoms. Her PPM
was interrogated 12/24/23 with normal function. Echo 01/18/24 with normal LVEF and well seated TAVR with stable gradients. In the ER her BP is elevated, she took her medications this am.
Past Medical History
Past Medical History: Other (as above)
Past Surgical History: Other (as above)
Social History
Tobacco: Former Smoker
Alcohol: None
Living: With Family
Family History
Family History: Other (father HTN)
Allergies / Home Medications
Allergy/AdvReac Type Severity Reaction Status Date / Time
iodine Allergy Unknown Verified 01/21/24 13:36
�Medication �Instructions �Recorded �Confirmed �Type
atorvastatin 10 mg tablet 10 mg PO DAILY High Cholesterol 11/30/23 12/15/23 History
escitalopram oxalate 10 mg tablet 10 mg PO DAILY Mental Health 11/30/23 12/15/23 History
levothyroxine 75 mcg tablet 75 mcg PO DAILY Thyroid 11/30/23 12/15/23 History
lisinopril 20 mg tablet 40 mg PO DAILY Blood Pressure 11/30/23 12/15/23 History
meloxicam 15 mg tablet 15 mg PO DAILYPRN PRN moderate pain 11/30/23 12/15/23 History
metformin 500 mg tablet 1,000 mg PO BID Diabetes 11/30/23 12/15/23 History
aspirin 81 mg tablet,delayed 81 mg PO DAILY Blood Clot 12/13/23 12/13/23 History
release Prevention/Tx
ibandronate 150 mg tablet 150 mg PO QMONTH bone health 12/13/23 12/13/23 History
loperamide 2 mg capsule 2 mg PO DAILYPRN PRN Diarrhea 12/13/23 12/13/23 History
acetaminophen 500 mg tablet 500 mg PO Q6HPRN PRN headache 12/15/23 12/15/23 History
(Tylenol Extra Strength)
ferrous sulfate 325 mg (65 mg 325 mg PO DAILY Supplement 12/15/23 12/15/23 History
iron) tablet
metoprolol succinate 25 mg 25 mg PO DAILY Heart 12/18/23 Rx
tablet,extended release 24 hr disease/condition 30 days #30 tabs
Review of Systems
-
History Source: Patient
All other systems: Negative unless noted
Physical Exam
Vital Signs
Temp Pulse Resp BP Pulse Ox
98.2 F 73 12 180/65 99
01/21/24 12:45 01/21/24 14:30 01/21/24 14:30 01/21/24 14:00 01/21/24 14:30
Lab Results
01/21/24 13:45
01/21/24 13:45
Troponin I < 0.012 ng/ml 01/21/24 13:45
Physical Exam
General: Well Developed, Well Nourished and No Apparent Distress
HEENT: Normocephalic, Anicteric and Moist Mucous Membranes
Respiratory: Clear and Non Labored Respirations
Cardiac: S1/S2 and Regular Rhythm
Breast: Deferred by me
GI: Soft, Non Tender, Non Distended and Normal Bowel Sounds
Rectal: Deferred by Provider
Genito-urinary: No Costovertebral Tender
Musculoskeletal: No Clubbing and No Cyanosis
Skin: Warm and Dry
Neuro: AO x 3
Hematologic/Lymphatic: No Lymphadenopathy
Psych: Calm
Impression / Plan
-
Dizziness, nausea, palpitations - while waling on treadmill.
- this was her first cardiac rehab session since her TAVR and PPM.
- symptoms resolved, no recurrence.
- elevated BP in the ER.
- non-obstructive CAD on cath 11/30/23, troponin negative <0.012, second troponin pending.
HTN - elevated BP in the ER.
- she took BP meds today.
- add Amlodipine 2.5mg daily and monitor.
TAVR - 12/16/23.
- stable on echo 01/18/24.
- continue cardiac rehab.
HLD - stable on Lipitor, continue.
NIDDM - continue Metformin.
Data Reviewed
-
EKG: Tracing Personally Visualized and interpreted
Medical Tests (Nuc Med, Echo etc): Report Reviewed by me (cath and echo as above)
Labs: Labs Reviewed by me
Old Records: Reviewed
[2024-01-21] MEDS: TYLENOL 1000 MG PO (16:33)
[2024-01-21] MEDS: LOPRESSOR 12.5 MG PO (16:57)
[2024-01-21 17:07] LABS: Troponin I < 0.012 ng/ml
[2024-01-21] MEDS: MAGNESIUM OXIDE 1000 MG PO (17:59)
[2024-01-21] MEDS: MAGNESIUM SULFATE 100 IV (17:59)
== END 2024-01-21 18:45 | disposition home or self-care (01) ==
LOC: EMR 12:38
PROVIDERS: EMERGENCY PHYSICIAN Emergency Medicine; FAMILY PHYSICIAN Family Medicine; OTHER PHYSICIAN Internal Medicine Cardiovascular Disease
DX: R00.2 Palpitations (principal); R42 Dizziness and giddiness; R51.9 Headache, unspecified; R11.0 Nausea; I25.10 Atherosclerotic heart disease of native coronary artery without angina pectoris; I10 Essential (primary) hypertension; E11.9 Type 2 diabetes mellitus without complications; I49.5 Sick sinus syndrome; E78.5 Hyperlipidemia, unspecified; Z95.2 Presence of prosthetic heart valve; Z95.0 Presence of cardiac pacemaker; Z87.891 Personal history of nicotine dependence; Z79.82 Long term (current) use of aspirin; Z79.84 Long term (current) use of oral hypoglycemic drugs; Z88.8 Allergy status to other drugs, medicaments and biological substances
CPT/HCPCS: 99284; 96365; 96361 ×2; 80053; 83735; 84484; 85025; 93005

== ENCOUNTER 2024-01-21 13:32 | Outpatient (RCR) | payer OTHER, SELFPAY ==
[2024-01-21 11:35] LABS: Glucose - Point of Care 95 mg/dl (70-99)
[2024-01-21 12:06] LABS: Glucose - Point of Care 115 mg/dl (70-99)
== END 2024-01-21 23:59 | disposition home or self-care (01) ==
LOC: CRHB 13:32
PROVIDERS: ATTENDING PHYSICIAN Thoracic Surgery (Cardiothoracic Vascular Surgery)
DX: Z95.3 Presence of xenogenic heart valve (principal); Z95.0 Presence of cardiac pacemaker
CPT/HCPCS: 82962; G0422; G0423

== ENCOUNTER 2024-03-15 12:09 | Outpatient (RCR) | payer OTHER, SELFPAY ==
[2024-03-08 15:00] LABS: Glucose - Point of Care 101 mg/dl (70-99)
[2024-03-08 15:44] LABS: Glucose - Point of Care 95 mg/dl (70-99)
[2024-03-10 11:01] LABS: Glucose - Point of Care 150 mg/dl (70-99)
[2024-03-10 11:50] LABS: Glucose - Point of Care 108 mg/dl (70-99)
[2024-03-13 11:16] LABS: Glucose - Point of Care 100 mg/dl (70-99)
[2024-03-13 12:14] LABS: Glucose - Point of Care 111 mg/dl (70-99)
[2024-03-15 11:20] LABS: Glucose - Point of Care 164 mg/dl (70-99)
[2024-03-15 11:57] LABS: Glucose - Point of Care 118 mg/dl (70-99)
== END 2024-03-15 23:59 | disposition home or self-care (01) ==
LOC: CRHB 12:09
PROVIDERS: ATTENDING PHYSICIAN Thoracic Surgery (Cardiothoracic Vascular Surgery)
DX: I49.5 Sick sinus syndrome (principal); Z95.4 Presence of other heart-valve replacement
CPT/HCPCS: 82962; G0422; G0423

== ENCOUNTER 2024-04-10 11:42 | Outpatient (RCR) | payer OTHER, SELFPAY ==
[2024-03-20 11:08] LABS: Glucose - Point of Care 98 mg/dl (70-99)
[2024-03-20 12:12] LABS: Glucose - Point of Care 101 mg/dl (70-99)
== END 2024-04-10 23:59 | disposition home or self-care (01) ==
LOC: CRHB 11:42
PROVIDERS: ATTENDING PHYSICIAN Thoracic Surgery (Cardiothoracic Vascular Surgery)
DX: Z95.4 Presence of other heart-valve replacement (principal)
CPT/HCPCS: 82962; G0422; G0423

== ENCOUNTER 2024-04-28 11:33 | Outpatient (RCR) | payer OTHER, SELFPAY | END 2024-04-28 23:59 | disposition home or self-care (01) | LOC: CRHB 11:33 | PROVIDERS: ATTENDING PHYSICIAN Thoracic Surgery (Cardiothoracic Vascular Surgery) | DX: I25.10 Atherosclerotic heart disease of native coronary artery without angina pectoris (principal); Z95.4 Presence of other heart-valve replacement | CPT/HCPCS: G0422; G0423 ==

== ENCOUNTER 2024-05-19 10:26 | Outpatient (RCR) | payer OTHER, SELFPAY | END 2024-05-19 23:59 | disposition home or self-care (01) | LOC: CRHB 10:26 | PROVIDERS: ATTENDING PHYSICIAN Student in an Organized Health Care Education/Training Program; FAMILY PHYSICIAN Family Medicine | DX: Z95.4 Presence of other heart-valve replacement (principal) | CPT/HCPCS: G0422; G0423 ==